=== PATIENT | male | born 1950 | race Caucasian/White ===

== ENCOUNTER 2016-04-03 11:52 | Inpatient (IN) | payer MEDICARE, OTHER ==
[~2016-04-03] VITALS: Ht 188 cm; Wt 130.2 kg
[2016-04-03] VITALS (10 sets, daily range): BP systolic 108–152; BP diastolic 54–76; PULSE 56–71; RESP 13–20; O2SAT 93–98
[~2016-04-03 11:52] MED LIST: ASPI-973 PO; ATOR20TA PO; CAR8A PO; CARV25TA2 PO; EPLE50TA3 PO; ISOS30TA4 PO; LOSA100T29 PO; NITR0.4T SL
[2016-04-03 12:11] LABS: BASOPHILS % (AUTO) 0.4 % (0-3); EOSINOPHILS % (AUTO) 0.9 % (0-5); MONOCYTES % (AUTO) 8.5 % (4-12); Mean Corpuscular Hemoglobin 27.9 pg (27.0-35.0); Mean Corpuscular Volume 85.2 fL (81-100); NEUTROPHILS % (AUTO) 68.4 % (40-74); Platelet Count 168 bil/L (150-400)
[2016-04-03] MEDS ORDERED: Propofol 10,000 mCg/mL 20 mL Inj ONE (12:12)
--- NOTE | 2016-04-03 12:24 | ED.REPORT ---
HPI-Chest Pain 40 and Over Date of Service Apr 03, 2016 ED Provider: Ed Murray MD Patient is a 66-year-old male with a hx of DM who reports to the ED via EMS complaining of an episode of light headedness and leg cramping ten hours ago. Patient was at cardiac rehab last night and after rowing for 20 minutes experienced extreme fatigue. Before bed last night, he felt like his heart rate was elevated. Pt awoke in the middle of the night (0200) up to use the restroom and experienced cramps in his thighs, SOB, light headedness, and nausea for about 10 minutes and then his symptoms resolved. He experienced another episode of similar symptoms six hours later. Patient went to his PCP two hours ago who then sent him to the ED. Patient had a stint placed two months ago by Dr. Santos. Patient had black stool in the middle of the night and has never had a bleed before. Patient is not currently experiencing any symptoms and denies chest pain. Nursing Notes Stated Complaint: CHEST PAIN Chief Complaint: Chest Pain Nursing Notes Reviewed: Yes Allergies: Coded Allergies: gabapentin (Verified Allergy, Unknown, Tachycardia - insomina, 01/29/16) spironolactone (Verified Allergy, Unknown, gynocomastia, 01/29/16) Scheduled Aspirin (Aspirin) 81 Mg Tablet 81 MG PO DAILY Atorvastatin (Lipitor) 20 Mg Tablet 20 MG PO DAILY Carvedilol (Carvedilol) 25 Mg Tablet 25 MG PO BID Clopidogrel Bisulfate (Plavix) 75 Mg Tablet 75 MG PO DAILY Doxazosin (Cardura) 8 Mg Tablet 8 MG PO HS Eplerenone (Eplerenone) 50 Mg Tablet 50 MG PO DAILY Losartan Potassium (Losartan Potassium) 100 Mg Tablet 100 MG PO DAILY Nitroglycerin SL (Nitrostat) 0.4 Mg Tab.subl 0.4 MG SL Q5MIN General Time Seen by MD: 12:09 Chief Complaint Other (light headedness ) Hx Obtained From: Patient Arrived By: Ambulance Sudden in Onset?: Yes Onset Occurred: 5 - 8 hours ago Symptom Duration: Since onset Severity: Current: No pain currently Severity: Maximum: Mild Recent Healthcare: Recent doctor visit Similar Sx Previous: No Past Medical History Past Medical History Reports: Congestive heart failure, Hypertension Past Surgical History stint placed on 01/29/[address] Santos Reports: CABG Smoking History Former Smoker Ambulatory Status Independent Review of Systems Review of Systems Note: leg cramping Constitutional: Reports: Fatigue Respiratory: Reports: Shortness of breath Cardiovascular: Denies: Chest pain GI: Reports: Hematochezia, Nausea Neurologic: Reports: Lightheaded Complete sys rev & neg: except as marked. Physical Exam Initial Vital Signs Vital Signs (First) Date Time Temp Pulse Resp B/P Pulse Ox O2 Delivery O2 Flow Rate FiO2 04/03/16 11:56 37.1 71 13 111/54 98 Room Air Initial VS: Reviewed General/Constitutional: Awake, Alert, No acute distress, Well appearing, Cooperative, Not toxic appearing Respiratory / Chest: Atraumatic, Breath sounds NL, Breath sounds = bilat, No respiratory distress, No rales, No rhonchi, No wheezing Cardiovascular: Heart rate NL, Regular rhythm, Heart sounds NL, No gallop, No murmurs, No rubs Abdomen: Atraumatic, Soft, Non-tender, No guarding, No rebound, BS normoactive Lower Extremity / Pelvis / MS: Atraumatic, Inspection NL, Full range of motion , No swelling, Non-tender, No edema Rectal for Blood: Positive: Blood - occult heme + Interpretation & Diagnostics Lab Results Interpretation Result Diagram: 04/03/16 1203 04/03/16 1203 Test 04/03/16 12:03 04/03/16 13:15 White Blood Count 6.8th/mm3 (3.8-10.1) Red Blood Count 3.51mil/mm3 (4.40-5.80) Hemoglobin 9.8g/dL (13.8-17.2) Hematocrit 29.9% (41.0-50.0) Mean Corpuscular Volume 85.2fL (81-100) Mean Corpuscular Hemoglobin 27.9pg (27.0-35.0) Mean Corpuscular Hemoglobin Concent 32.8% (32.0-37.0) Red Cell Distribution Width 14.5% (12.3-15.4) Platelet Count 168bil/L (150-400) Neutrophils (%) (Auto) 68.4% (40-74) Lymphocytes (%) (Auto) 21.4% (14-46) Monocytes (%) (Auto) 8.5% (4-12) Eosinophils (%) (Auto) 0.9% (0-5) Basophils (%) (Auto) 0.4% (0-3) Sodium Level 137mEq/L (134-144) Potassium Level 4.0mEq/L (3.5-5.2) Chloride Level 101mEq/L (97-108) Carbon Dioxide Level 24mmol/L (18-29) Blood Urea Nitrogen 43mg/dL (8-27) Creatinine 0.89mg/dL (0.76-1.27) Estimat Glomerular Filtration Rate 90mL/min (>59) Glucose Level 123mg/dL (60-99) Calcium Level 9.4mg/dL (8.5-10.1) Magnesium Level 1.9mg/dL (1.6-2.6) Total Bilirubin 0.2mg/dL (0.0-1.2) Aspartate Amino Transf (AST/SGOT) 18U/L (0-50) Alanine Aminotransferase (ALT/SGPT) 25U/L (0-44) Alkaline Phosphatase 61U/L (25-160) Troponin T < 0.010ug/L (0.0-0.011) Total Protein 6.1g/dL (6.4-8.4) Albumin 3.6g/dL (3.4-5.0) ECG Interpretation ECG Interpretation: T wave flattening in V3-V6 new relative to EKG from 01/29/[address] elevation Time: 12:00 Interpreted by: ED physician Normal ECG Interpretation: Normal sinus rhythm (69) Re-Eval/Medical Decision Med Decision/Clinical Course 66-year-old male history of CABG and multiple stents most recent stent placed in January of this year by Dr. Galvan presenting with episode last night of leg cramping and diaphoresis and pallor that lasted 5-10 minutes at 02 100. He was evaluated by the paramedics who reported his EKG was normal and he decided to stay home. He went to his primary doctor today who noted T-wave inversions in lateral leads which were new relative to EKG from 1 week ago. On arrival EKG with T-wave flattening in lateral leads. He also complained of melena and he did have indeed melanotic stools on rectal exam. Hemoglobin is 9.8 down from 13 previous. I consulted GI who took the patient for endoscopy, Protonix was initiated with bolus and drip. Typed and crossed 2 units PRBCs. I discussed the EKG changes with cardiology Dr Hong who was not alarmed and recommended trending troponins. He recommended continuing Plavix but stopping aspirin given the recent stent placement. Patient admitted to GI lab, hospitalist for upper GI bleed, EKG changes.. Time of Eval: 14:00 Patient Status: Condition unchanged Re-Evaluation/Progress Note: Pt rechecked. Informed pt of need for admission. Pt understands and agrees with plan for admission. All questions addressed. Consultation : Referral / Consult Name: Jon Hong MD Consulted With: Cardiology Call Returned at: 13:51 Administrative Staff Supervisor: Agrees with eval, Agrees with plan Note: Case discussed. Dr. Hong agrees with plan. Advised to continue with plavex and stop aspirin. Was not concerned about EKG changes. Counseled Regarding: Diagnosis, Lab results, Need for transfer Discharge & Departure Primary Impression: GI bleed GI bleed type/associated pathology: unspecified gastrointestinal hemorrhage type Qualified Code: K92.2 - Gastrointestinal hemorrhage, unspecified Disposition: Transfer, [place]/[facility] Discharge Condition All VS Reviewed: Yes Condition: Stable Referrals: Jann Sanchez MD (PCP) Scribe Attestation Portion of this note were transcribed by Reji Jones. I, Dr. Murray, personally performed the history, physical exam, and medical decision-making: I reviewed and confirmed the accuracy for the information in the transcribed note. Signed by: az Becerra, 04/03/16 [id number] copies to: Jann Sanchez MD, Ben M MD Apr 03, 2016 12:24 REJI JONES Apr 03, 2016 12:54
[2016-04-03] MEDS ORDERED: 0.9% Sodium Chloride 1,000 ML IV ONE (12:42)
[2016-04-03 12:45] LABS: Magnesium 1.9 mg/dL (1.6-2.6)
[2016-04-03 12:47] LABS: TROPONIN T < 0.010 ug/L (0.0-0.011)
--- NOTE | 2016-04-03 12:51 | DRSVH ---
PROCEDURE: X-RAY CHEST ONE VIEW, PORTABLE ([id number]) INDICATIONS: CHEST PAIN TECHNIQUE: One view of the chest was acquired. COMPARISON: None. FINDINGS: Surgical changes and devices: Post median sternotomy. Lungs and pleura: No pleural effusions or pneumothorax. Lungs are clear. Mediastinum: Mediastinal contours appear normal. Heart size is normal. Bones and chest wall: No suspicious bony lesions. Overlying soft tissues appear unremarkable. IMPRESSION: No acute cardiopulmonary disease. Dictated by: Wes Langford [facility] Interpreted: Rylee Cervantes MD on 04/03/2016 at 12:49 Transcribed by: LETI on 04/03/2016 at 12:49 Approved by: Rylee Cervantes MD, PhD on 04/03/2016 at 17:25
[2016-04-03] MEDS ORDERED: Pantoprazole Inj 80 MG, Pharmacy To Mix 1 EA in 0.9% Sodium Chloride 80 ML IV ONE ×2 (13:20)
[2016-04-03] MEDS ORDERED: Pantoprazole 4 mg/mL 10 mL Inj IVPUSH ONE (13:20)
[2016-04-03] MEDS ORDERED: CLOP75TA3 PO (14:13)
[2016-04-03] MEDS ORDERED: Alum-Mag Hydrox-Simeth 30 mL Suspension PO PRN (14:20)
[2016-04-03] MEDS ORDERED: Ondansetron 2 mg/mL 2 mL Inj IVPUSH PRN (14:20)
--- NOTE | 2016-04-03 14:21 | PCM.CHPMED ---
Subjective Date of Service: Apr 03, 2016 Provider requesting consult: Ed Murray MD Primary Physician: Admitting Physician: Primary Care Physician: Jann Sanchez MD Attending Physician: Chief Complaint: Chief Complaint: Lightheadedness, weakness, fatigue, dyspnea History of Present Illness: Patient is a 66-year-old male with a hx of CAD s/p CABG and coronary stent, and DM who reports to the ED via EMS complaining of lightheadedness, fatigue, shortness of breath on exertion, and nausea. He was exercising at cardiac rehab last night and after rowing for 20 minutes he experienced extreme fatigue. Before bed that night, he felt a rapid heart rate. Pt awoke in the middle of the night (0200) up to use the restroom and experienced SOB, light headedness, and nausea for about 10 minutes and then his symptoms resolved. He experienced another episode of similar symptoms six hours later. Patient had black stool in the middle of the night and has never had a bleed before. Patient went to his PCP who noted his Hb had dropped from 13 to 9.8, and sent him to the ED. Patient is not currently experiencing any symptoms and denies chest pain, shortness of breath, or fatigue while resting. Patient had a stent placed [address] Hammer, currently on Aspirin and Plavix. He states he stopped drinking recently but was previously drinking 2 20 oz beers per day. He denies NSAID or Tylenol use. No family history of colon cancer, Crohn's disease, UC, or celiac disease. In the ED, Hb 9.8, BUN 43, Cr 0.89, LFTs normal. INR pending. CXR was negative. EKG showed new T wave flattening in V3-V6 but troponin was negative. Review of Systems: Comprehensive review of systems conducted and was negative except for the pertinent positives listed above. PMH Past Medical History Congestive heart failure Hypertension CAD Surgical History Stent placed on 01/29/[address] Cabrera CABG Allergies: Coded Allergies: gabapentin (Verified Allergy, Unknown, Tachycardia - insomina, 01/29/16) spironolactone (Verified Allergy, Unknown, gynocomastia, 01/29/16) Social History Hx Alcohol Use: YesHx Substance Use: NoHx Tobacco Use: No Smoking Status: Former Smoker Exam Vital Signs Vital Sign - Last Date Time Temp Pulse Resp B/P Pulse Ox O2 Delivery O2 Flow Rate FiO2 04/03/16 13:24 71 14 108/61 98 Room Air 04/03/16 11:56 37.1 Additional Information: General: Alert, Oriented X3, Cooperative, No Acute Distress Head: Normocephalic, atraumatic. External ears normal. Eyes: Right pupil dilated, deviated outward. Pt reports this is chronic and he has hx of retinal detachment. Mouth: Mouth Normal, Mucous Membranes Moist/[place]ylon Neck: Neck supple with full range of motion. Chest & Lungs: Clear to auscultation bilaterally with no crackles, wheezes, or rhonchi. Cardiovascular: Regular Rate/Rhythm, Normal S1, Normal S2, No Murmurs/Rubs/ Gallops Abdomen: Non-tender, Non-distended, No masses, Normoactive bowel tones, Soft Musculoskeletal: Normal Range of Motion Extremities: No cyanosis/clubbing/edema bilaterally Neurological: Grossly Neurologically Intact, Normal Speech Lab and Diagnostics Result Diagram: 04/03/16 1203 04/03/16 1203 Assessment & Plan Assessment Patient is a 66-year-old male with a hx of CAD s/p CABG and coronary stent, and DM who reports to the ED via EMS complaining of lightheadedness, fatigue, shortness of breath on exertion, and melena. Acute upper GI bleed. - Likely related to his chronic Aspirin and Plavix use. However, given his recent stent, he will likely have to continue these medications. - Will schedule upper endoscopy - Protonix bolus and gtt - Continue to monitor for signs of further bleeding. Acute iron deficiency anemia. - Likely secondary to upper GI bleed. Given his hx of CAD and CHF, consider more stringent transfusion guidelines when monitoring H&H. - Continue to monitor H&H - Transfuse as necessary Shortness of breath on exertion. - May be secondary to acute anemia but his anemia is not particularly severe. Given his cardiac history and new EKG changes, recommend monitoring for any further changes in troponin or EKG changes. I have seen and examined the patient and agree with the resident. Problems: Zack Miller Apr 03, 2016 14:21 Jose D Ulloa MD Apr 04, 2016 17:07
[2016-04-03 14:32] LABS: INR 0.96 ratio
[2016-04-03] MEDS ORDERED: Lactated Ringer's 1,000 ML IV ONE (14:34)
--- NOTE | 2016-04-03 14:34 | PCM.HPANE ---
Patient Data Surgeon Admitting Provider:Oniel Orr MD Attending Provider:Oniel Orr MD Primary Care Physician:Jann Sanchez MD Other Provider: Reason for Visit Gi Bleed CHEST PAIN Ht/WT & BMI Height (Feet): 6 Height (Inches): 2 Weight (Kilograms): 130.45 Body Mass Index 36.00 Allergies Coded Allergies: gabapentin (Verified Allergy, Unknown, Tachycardia - insomina, 01/29/16) spironolactone (Verified Allergy, Unknown, gynocomastia, 01/29/16) Past Anesthesia History Anesthesia History: Denies:: Abnormal Airway, Anesthesia Reactions, Difficult Intubation, Fam Anesthesia Reaction, Fam Malignant Hypertherm, Malignant Hyperthermia Diabetes History Hx Diabetes?: Yes Current Bedside Blood Glucose: 113 MRSA MRSA: No Medications Blood Thinner: Aspirin, Plavix Last Dose Blood Thinner: Apr 03, 2016 Reported Medications Clopidogrel Bisulfate (Plavix)75 Mg [id number] Mg PO DAILY 30 Days Ref 0 04/03/16 Nitroglycerin SL (Nitrostat)0.4 Mg Tab.subl0.4 Mg SL Q5MIN #1 BOTTLE 01/28/16 Losartan Potassium 100 Mg [id number] Mg PO DAILY 01/28/16 Eplerenone 50 Mg [id number] Mg PO DAILY 01/28/16 Carvedilol 25 Mg [id number] Mg PO BID Ref 0 01/28/16 Atorvastatin (Lipitor)20 Mg [id number] Mg PO DAILY Ref 0 01/28/16 Aspirin 81 Mg Pzjqii15 Mg PO DAILY Ref 0 01/28/16 Doxazosin (Cardura)8 Mg Tablet8 Mg PO HS Ref 0 01/28/16 Discontinued Reported Medications Isosorbide MN ER 30 Mg Tab.er.24h30 Mg PO DAILY 01/28/16 History History of ENT Problems?: Yes HEENT History: Positive for:: Cataracts (Right eye catract at - detatched retina) Denies:: Abnormal Airway Difficult Intubation Hearing Problem Hx of Heart Problems?: Yes Cardiovascular History: Positive for:: Cardiac Surgery Chest Pain Congestive Heart Failure Edema Hypertension Denies:: Heart Murmur Irregular Heartbeat Pacemaker Thrombophlebitis Hx of Respiratory Problem?: Yes Respiratory History: Denies:: Tuberculosis Hx Neurologic Problems?: No Neurological History: Denies:: CVA Hx of GI Problems?: Yes Gastrointestinal History: Positive for:: Rectal Bleeding (BLACK IN COLOR) Denies:: Gastrointestinal Bleeding Hx of Problems?: Yes Hx Musculoskeletal Problems?: No Musculoskeletal History: Positive for:: Back Injury (Back - neck - coccyx) Denies:: Joint Replacement Hx of Psycho/Social Problems?: No Hx Surgeries?: Yes (Bowel obstruction) Hx Any Other Health Problems?: Yes Other History: Positive for:: Hospitalization Denies:: Cancer Thyroid Disease History Blood Transfusions: Denies:: Blood Transfuse Reaction Blood Transfusions Hx Diabetes: YesBedside Blood Glucose: 113 Other Pertinent History: CHRONIC SWELLING OF LOWER EXTREMITIES Hx Alcohol Use: YesHx Substance Use: No Smoking Status: Former Smoker Have You Smoked inLast 12 mo: No Stop/Bang Treated for Sleep Apnea?: Yes Do You Have a CPAP Machine?: Yes Risk Assessment Category Category 1A: Patient has history of documented sleep apnea, and HAS NOT received any narcotic, sedative or anesthesia administration during this stay. Category 1B: Patient has history of documented sleep apnea, and HAS received any narcotic , sedative or anesthesia administration during this stay Category 2: Patient has SUSPECTED Obstructive Sleep Apnea, and HAS received any narcotic , sedative or anesthesia administration during this stay. Category 3: Patient has SUSPECTED Obstructive Sleep Apnea and HAS NOT received narcotic, sedative or anesthesia administration during this stay. Category 4: Outpatient in Procedural Areas with known sleep apnea or who screen positive for High Risk via the STOP/BANG questionnaire. Exam Exam Vital Signs Vital Signs Date Time Temp Pulse Resp B/P Pulse Ox O2 Delivery O2 Flow Rate FiO2 04/03/16 14:17 60 14 141/67 98 Room Air 04/03/16 13:24 71 14 108/61 98 Room Air 04/03/16 11:56 37.1 71 13 111/54 98 Room Air General Appearance: Alert, Oriented X3, Cooperative, No Acute Distress HEENT/AIRWAY: MP 2 Lungs: Clear to Auscultation Heart: Exam Unremarkable Meds/Labs/Diagnostics Admission Meds Current Medications Sodium Chloride (Normal Saline) 1,000 ml @ 0 mls/hr Q0M ONCE IV Last administered on 04/03/16 12:42; Start 04/03/16 at 12:42; Stop 04/03/16 at 12:45 ; Status DC Pantoprazole 80 mg 80 mg STAT ONCE IVPUSH Last administered on 04/03/16 13:47 ; Start 04/03/16 at 13:20; Stop 04/03/16 at 13:21; Status DC Pantoprazole/ Miscellaneous/ Sodium Chloride (Protonix Inj/ Pharmacy To Mix/ Normal Saline) 100 ml @ 10 mls/hr ONCE ONCE IV Last administered on t 13:53; Start 04/03/16 at 13:20; Stop 04/03/16 at 23:19 Bedside Blood Glucose: 113 Labs Test 04/03/16 12:03 04/03/16 13:15 White Blood Count 6.8th/mm3 (3.8-10.1) Red Blood Count 3.51mil/mm3 (4.40-5.80) Hemoglobin 9.8g/dL (13.8-17.2) Hematocrit 29.9% (41.0-50.0) Mean Corpuscular Volume 85.2fL (81-100) Mean Corpuscular Hemoglobin 27.9pg (27.0-35.0) Mean Corpuscular Hemoglobin Concent 32.8% (32.0-37.0) Red Cell Distribution Width 14.5% (12.3-15.4) Platelet Count 168bil/L (150-400) Neutrophils (%) (Auto) 68.4% (40-74) Lymphocytes (%) (Auto) 21.4% (14-46) Monocytes (%) (Auto) 8.5% (4-12) Eosinophils (%) (Auto) 0.9% (0-5) Basophils (%) (Auto) 0.4% (0-3) Sodium Level 137mEq/L (134-144) Potassium Level 4.0mEq/L (3.5-5.2) Chloride Level 101mEq/L (97-108) Carbon Dioxide Level 24mmol/L (18-29) Blood Urea Nitrogen 43mg/dL (8-27) Creatinine 0.89mg/dL (0.76-1.27) Estimat Glomerular Filtration Rate 90mL/min (>59) Glucose Level 123mg/dL (60-99) Calcium Level 9.4mg/dL (8.5-10.1) Magnesium Level 1.9mg/dL (1.6-2.6) Total Bilirubin 0.2mg/dL (0.0-1.2) Aspartate Amino Transf (AST/SGOT) 18U/L (0-50) Alanine Aminotransferase (ALT/SGPT) 25U/L (0-44) Alkaline Phosphatase 61U/L (25-160) Troponin T < 0.010ug/L (0.0-0.011) Total Protein 6.1g/dL (6.4-8.4) Albumin 3.6g/dL (3.4-5.0) Hold Urine Received (Received) Plan Impression Patient chart reviewed, patient interviewed and anesthestic plan with risks, benefits, and alternatives discussed, and informed consent obtained. ASA Physical Status: ASA3 Severe Disease Anesthetic Plan: MAC Bene/Risks/Altern/Consents: Yes HP Complete Prior to Induction: Yes Juan M Cheng MD Apr 03, 2016 14:25
--- NOTE | 2016-04-03 15:01 | PCM.ENDEGD ---
EGD Date of Service: Apr 03, 2016 Physician Oniel Orr MD Indication for Procedure GI bleeding Post Procedure Dx & Findings: Multiple erosions and ulcers in the stomach and the duodenum Procedure Esophagogastroduodenoscopy Patient taking aspirin and Plavix. PROCEDURE IN DETAIL: The patient was placed in left lateral decubitus position. Bite block was placed. Scope lubricated, placed in posterior pharynx, passed through the cricopharyngeus and esophagus, slowly advanced the entire length of the gastric pouch, pylorus was identified, scope passed through the pylorus and descending portion of duodenum, withdrawn in the antrum, retroflexed upon itself for view of fundus and cardia. Scope was then withdrawn through the oropharynx. The esophagus was unremarkable until the Z line. At the Z line, there was a irregularity with possible salmon-colored mucosa is less than 2 cm. No masses ulcers and erosions noted. Scope further advanced to the stomach. Retroflexion was done. Stomach was easily inflatable and deflated using air. The antrum and the pylorus showed multiple erosions seen days with surrounding inflammation. The duodenum was normal until the first pass of the duodenum. Along the first and the second pass, I counted 3 ulcers. Largest one was 1-1/2 cm with surrounding inflammation with some cratering. There was a pigmented spot. No bleeding or oozing of blood noted. We injected water right at the site. Then the pigmented spot was noted. No visible vessel. There are 2 ulcers further down. One was about a centimeter the other one was a little less than a centimeter. They both had clean base. Surrounding inflammation noted. Patient also had several 2-3 mm erosions in the same area. Biopsies not obtained due to aspirin and Plavix use. Impression Multiple antral erosions Multiple duodenal erosions At least 3 ulcers. One of the ulcer had pigmented spot. While the patient continues with the aspirin and Plavix, there is risk of one of these ulcers was in blood. Risk benefit for aspirin and Plavix has to be assessed and carefully calculated. I will defer this to cardiology and the primary care service. Recommendation Continue IV Protonix 8 mg per hour drip for the next 48 hours. Clinical diet for 48 hours. Full liquid diet after 48 hours. We will discharge the patient with soft diet for 2 weeks. Ideally would better if they could stop the aspirin and Plavix however please consult cardiology about necessity to continue the aspirin and Plavix. Presedation Assessment Risks and Benefits Informed consent was obtained from the patient after all risks and benefits including but not limited to drug reaction, infection, pain, bleeding, perforation, as well as alternatives were discussed. Patient monitoring Continuous pulse oximetry, cardiac monitoring, blood pressure monitoring, IV access, and oxygen at 2L per nasal cannula. Complications There were no periprocedural complications identified. Post Procedure Plan Post Procedure Recommendations 1. Restrict activities today. 2. Resume normal activities in the morning. 3. Resume medications. 4. GERD behavioral modification: - Avoid fatty, acidic, spicy, large meals - Do not lie down after meals - Do not eat or drink anything for at least 2 1/2 hours before going to bed at night - Discontinue tobacco and alcohol - Decrease or avoid caffeine - Avoid chocolate and mints - Decrease weight - Avoid aspirin and non steroidal anti-inflammatory agents (NSAID) such as Aleve, Advil, Mobic, Naproxen, Ibuprofen, etc 5. Add proton pump inhibitor. Take 30 minutes before 1st meal of the day. 6. Patient informed of normal post procedure side effects as bloating, drowsiness, blood streaking in the stool 7. If gastric biopsy reveal H.pylori, continue with appropriate treatment 8. If small bowel biopsy reveals celiac, continue with appropriate treatment 9. Please don't hesitate to call me with any questions Jose D Ulloa MD Apr 03, 2016 15:01
--- NOTE | 2016-04-03 15:35 | PCM.HPMED ---
Subjective Date of Service Apr 03, 2016 Primary Provider: Admitting Physician: Oniel Orr MD Primary Care Physician: Jann Sanchez MD Attending Physician: Oniel Orr MD Admit Status: From the Emergency Department, Full Admit, Admit to Blue Team Chief Complaint: Lightheadedness, weakness, fatigue, dyspnea History of Present Illness: Nicho is a 66yo male with CAD s/p drug eluting stent placement on 01/29/16 on dual antiplatelet therapy who presented to the emergency department via EMS from his PCP's office with lightheadedness associated with dyspnea and generalized fatigue which began abruptly at 2am today. He awoke at 2am feeling nauseated and ambulated to the bathroom. He then had loose, black stooling followed by 10 minutes of lightheadedness without syncope. He reports that he is usually a vigorous eater, but has been indifferent to food today. He denies any current nausea. He was feeling like his usual self yesterday until mid way through cardiac rehab exercises when he began to feel very fatigued, no lightheadedness or dyspnea at that time. He states that he went to bed early because he was "just so tired" and had some palpitations when getting ready for bed. He went to see his PCP today who noted his Hgb had declined from 13 to 9.8 , and sent him to the ED. Nicho denies any current symptoms of lightheadedness , dyspnea, palpitations, or chest pain. He admits to ongoing fatigue. Nicho used to drink 1-2 beers per day, but has not had any alcohol since January 2016. He denies any NSAID use. In the ER, his BUN was found to be elevated at 43 and hgb at 9.8. A pantoprazole drip was started and gastroenterology consulted for a prompt EGD. The patient's history was obtained while in the preprocedure area for endoscopy. Review of Systems: A comprehensive review of systems was conducted with the patient and found to be negative except as above in the History of Present Illness. Allergies Coded Allergies: gabapentin (Verified Allergy, Unknown, Tachycardia - insomina, 01/29/16) spironolactone (Verified Allergy, Unknown, gynocomastia, 01/29/16) Home Medications Aspirin 81mg daily Amlodipine 10mg daily Atorvastatin 20mg qHS Carvedilol 25mg qAM and 12.5 qHS Clopidogrel 75mg daily Doxazosin 8mg qHS Eplerenone 50mg daily Losartan 100mg daily Nitroglycerin 0.4mg sublingual tablet PRN chest pain Vitamin D3 400IU TID PMH Coronary Artery Disease s/p drug eluting stent to the distal circumflex on 01/28. 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 No family hx of bleeding disorders. Both parents of cardiovascular disease: His father had an [place] in this 50s, mother had CAD and valvular heart disease Social History Hx Alcohol Use: Yes (Quit in January 2016, previously drank 1-2 beers per day (sometimes each being 20oz)) Hx Substance Use: No Hx Tobacco Use: Yes Smoking Status: Former Smoker (smoked 1 pack per day for 5 years, quit >30 years ago.) Years of Smokin Additional Information Local resident who lives with his Exam Vital Signs Vital Sign - Last Date Time Temp Pulse Resp B/P Pulse Ox O2 Delivery O2 Flow Rate FiO2 04/03/16 14:17 60 14 141/67 98 Room Air 04/03/16 11:56 37.1 Exam General: Resting comfortably on the gurney. + pallor with pale mucus membranes. No acute distress. HEENT: Normocephalic, atraumatic. External ears without defect. Right pupil is dilated, left constricts appropriately. EOMI. Anicteric sclerae. Pale conjunctiva. Neck: Supple with full range of motion. No jugular venous distension. Cardiovascular: Regular rate and rhythm without murmur, rub, or gallop appreciated Pulmonary: Clear to auscultation bilaterally without crackles, wheezes, or rhonchi. Normal respiratory effort with no use of accessory muscles. Abdomen: Normoactive bowel tones. Soft, nontender, nondistended. No hepatosplenomegaly appreciated. Extremities: No clubbing, cyanosis. Trace bilateral pitting edema distal to the knees. Skin: Normal temperature, turgor, and texture; no rash appreciated. Neurological: Cranial nerves grossly intact. Normal muscle strength, tone, and bulk. No known gait impairment. Psychiatric: Normal mood and affect. Alert and oriented to person, place, and time. Lab and Diagnostics Result Diagram: 04/03/16 1203 04/03/16 1203 X-Rays, CTs and MRIs Chest xray: FINDINGS: Surgical changes and devices: Post median sternotomy. Lungs and pleura: No pleural effusions or pneumothorax. Lungs are clear. Mediastinum: Mediastinal contours appear normal. Heart size is normal. Bones and chest wall: No suspicious bony lesions. Overlying soft tissues appear unremarkable. IMPRESSION: No acute cardiopulmonary disease. Dictated by: Wes ROCK Interpreted: Rylee Cervantes MD on 04/03/2016 at 12:49 Assessment & Plan Nicho is a 66yo male on dual antiplatelet therapy for CAD who presented with a symptomatic acute upper gastrointestinal hemorrhage, he has been admitted for further evaluation and treatment. 1. Upper GI Bleed, Acute - Continue IV PPI drip per GI - Prompt EGD with gastroenterology - Trend H&H q6h - Transfuse for hemoglobin < 9 2. Acute Blood Loss Anemia - Secondary to #1 - Transfuse if Hgb less than 9.0 given hx of severe CAD - Check H/H q 6 hours x4 - Telemetry monitoring 3. Coronary artery disease, chronic - Cardiology (Dr Hong) has recommended continuation of clopidogrel due to his severe, diffuse CAD and holding his aspiring due to the active GI hemorrhage. - Plan to continue his home carvedilol - Telemetry 4. Hyperlipidemia, chronic -Continue home statin dosing 5. Hypertension, chronic - Continue losartan at home dosing - Monitoring 6. Hyperaldosteronism, chronic and presumed stable - Continue eplerenone - Monitor CMP for potential electrolyte abnormalities 7. Diabetes mellitus, type 2 with home dietary control - Once eating , will have constant carbohydrate diet - Low dose correctional lispro insulin - Blood glucose monitoring Nicho is admitted under inpatient status with expected length of stay greater than 2 midnights due to severity of presenting symptoms, risk of adverse event, and complexity of treatment plan. Resuscitation Status: CPR: Attempt Resuscitation (Discussed at bedside with the patient) VTE Prophylaxis Contraindicate VTE Med Contraindication: Bleeding Attending Statement The patient was seen and examined together with Dr. Hancock on 04/03/2016 and I have added additional information to the note above. Rasheeda Hancock DO Apr 03, 2016 14:47 Oniel Orr MD Apr 03, 2016 16:20
[2016-04-03] MEDS ORDERED: Glucose 40% Oral Gel 15 Gm Tube PO PRN (15:40)
--- NOTE | 2016-04-03 15:52 | PCM.ANEP2 ---
Post Anesthesia Evaluation ASA/CMS Post Anesthesia VS in Patient's Normal Range?: Yes Resp Stable; Airway Patent?: Yes CV Function & Hydration Stable: Yes Mental Status Recovered?: Yes Pain control Satisfactory?: Yes N/V Control Satisfactory?: Yes Juan M Cheng MD Apr 03, 2016 15:52
[2016-04-03] MEDS: Pantoprazole Inj 80 MG in 0.9% Sodium Chloride 80 ML IV SCH (16:25)
--- NOTE | 2016-04-03 16:59 | NUR ---
ADMIT Pt brought onto floor around 1600 via gurney from [facility]. Report received from MEGAN Coker in Recovery. VSS, no s/sx of distress, reports no pain, n, v. Steady on feet, SBA to bathroom. Welcome video viewed, belongings recorded placed in closet. Med rec reviewed - MD notified, medications taken down to pharmacy. Assessments completed.
[2016-04-03] MEDS: Insulin LISPRO 300 Unit/3 mL Inj SUBQ SCH ×2 (17:30→22:00)
--- NOTE | 2016-04-03 17:49 | PCM.HPCARD ---
Subjective Date of service Apr 03, 2016 Primary Provider: Admitting Physician: Oniel Orr MD Primary Care Physician: Jann Sanchez MD Attending Physician: Oniel Orr MD Admit Status: Full Admit Chief Complaint: Chief Complaint: Chest pain History of Present Illness: I did not have a chance to see this patient but I have reviewed his records and I have been asked to write some recommendations in this gentleman who unfortunately presents with acute UGI bleed and recently had a TALISHA to a relatively large size OM on January [address] Hammer. He was still in GI lab. PMH Past Medical History Congestive heart failure Hypertension CAD Recent TALISHA to OM branch on 01/29/2016. Bedside Blood Glucose: 98 Surgical History Stent placed on 01/29/[address] Cabrera CABG Allergies: Coded Allergies: gabapentin (Verified Allergy, Unknown, Tachycardia - insomina, 01/29/16) spironolactone (Verified Allergy, Unknown, gynocomastia, 01/29/16) Social History Hx Alcohol Use: Yes (Quit in January 2016, previously drank 1-2 beers per day (sometimes each being 20oz))Hx Substance Use: NoHx Tobacco Use: Yes Smoking Status: Former Smoker (smoked 1 pack per day for 5 years, quit >30 years ago.) Years of Smokin Exam Vital Signs Vital Sign - Last Date Time Temp Pulse Resp B/P Pulse Ox O2 Delivery O2 Flow Rate FiO2 04/03/16 16:00 58 04/03/16 15:51 36.4 19 152/76 94 Room Air Lab and Diagnostics Result Diagram: 04/03/16 1628 04/03/16 1203 Assessment & Plan Problems: (1) Upper gastrointestinal hemorrhage Plan: I have reviewed the patient's coronary images and his recent upper endoscopy. Given the recent TALISHA to a relatively large size OM branch, I would recommend to continue with Plavix 75 mg once a day and stop aspirin for now. Continue to monitor his H/H and treat him with H2/PPI as directed by GI. Transfuse as needed to maintain Hgb > 8.5. If hypotensive then hold BP meds as well. Hopefully with stopping his ASA and treating him with H2 blockers/PPI, he will stop bleeding in the next 2-3 days. Ideally, he should stay on Plavix for 6 months from date of PCI, but one may consider stopping it after just 3 months in certain cases. My associate, Dr. Covington, will further assist you if needed. Status: Acute ICD Code: K92.2 (2) CAD (coronary artery disease) Qualifiers: Coronary Disease-Associated Artery/Lesion type: [place] artery [place] vs. transplanted heart: [place] heart Associated angina: without angina Qualified Code: I25.10 - Atherosclerotic heart disease of [place] coronary artery without angina pectoris Status: Chronic ICD Code: I25.10 (3) S/P drug eluting coronary stent placement Status: Acute ICD Code: Z95.5 (4) Hx of CABG Status: Acute ICD Code: Z95.1 (5) GI bleed Qualifiers: GI bleed type/associated pathology: unspecified gastrointestinal hemorrhage type Qualified Code: K92.2 - Gastrointestinal hemorrhage, unspecified Status: Acute ICD Code: K92.2 VTE Mechanical Devices: Intermittant Pneumatic CD Resuscitation Status: CPR: Attempt Resuscitation (Discussed at bedside with the patient) VTE Prophylaxis Contraindicate VTE Med Contraindication: Bleeding Time spent 30 minutes Copies to: Jyothi Cabrera MD, Oscar J MD Apr 03, 2016 17:49
[2016-04-04] VITALS (11 sets, daily range): BP systolic 92–119; BP diastolic 54–74; PULSE 55–80; RESP 16–20; O2SAT 94–98
--- NOTE | 2016-04-04 00:07 | NUR ---
Coccygeal Pain Pt complained of chronic coccygeal pain. Upon assessment of coccyx, skin clean, dry and intact with no visible abrasions/wounds. Provided patient with 2 pillows for additional cushioning and positioning assistance. Patient stated pillows did provide some relief and support while positioned on left side. Bed low and locked, call light within reach.
--- NOTE | 2016-04-04 01:20 | NUR ---
low hgb 23:[address] Sharma was notified per Dr. Hong's recommendation. Dr. Sharma ordered to monitor for bleeding and wait for repeat H/H results at 04:30. will closely monitor pt.
[2016-04-04] MEDS: Pantoprazole Inj 80 MG in 0.9% Sodium Chloride 80 ML IV SCH ×4 (02:49→12:54)
[2016-04-04] MEDS ORDERED: Furosemide 10 mg/mL 2 mL Inj IV ONE ×2 (06:35→13:20)
[2016-04-04] MEDS ORDERED: 0.9% Sodium Chloride 500 ML ONE (07:20)
[2016-04-04] MEDS: Insulin LISPRO 300 Unit/3 mL Inj SUBQ SCH ×4 (08:00→19:23)
--- NOTE | 2016-04-04 08:01 | PCM.PNMED ---
Subjective Date of Service Apr 04, 2016 Subjective Nicho denies any dizziness. He states that he is feeling okay. Denies any nausea, but he remains without interest in food. His blood pressure has been lower than usual this morning. Exam Vital Signs Vital Sign - Last Date Time Temp Pulse Resp B/P Pulse Ox O2 Delivery O2 Flow Rate FiO2 04/04/16 07:44 36.9 64 20 118/74 04/04/16 05:30 94 Room Air Intake and Output 04/03/16 04/03/16 04/04/16 Cumulative From/Thru 15:00 23:00 07:00 04/03/16 11:56 - 04/04/16 06:35 Intake Total 200 ml 314 ml 200 ml 714 ml Output Total 375 ml 500 ml 875 ml Balance 200 ml -61 ml -300 ml -161 ml Intake Oral 314 ml 200 ml 514 ml IV Total 200 ml 200 ml Output Urine Total 375 ml 500 ml 875 ml # Voids 1 1 Exam General: Sleeping in bed upon my entering the room. Comfortable appearing, awoken easily. + pallor with pale pink mucus membranes. No acute distress. HEENT: Normocephalic, atraumatic. External ears without defect. Right pupil is dilated, left constricts appropriately. EOMI. Anicteric sclerae. Pale conjunctiva. Neck: Supple with full range of motion. No jugular venous distension. Cardiovascular: Regular rate and rhythm without murmur, rub, or gallop appreciated Pulmonary: Clear to auscultation bilaterally without crackles, wheezes, or rhonchi. Normal respiratory effort with no use of accessory muscles. Abdomen: Normoactive bowel tones. Soft, nontender, nondistended. No hepatosplenomegaly appreciated. Extremities: No clubbing, cyanosis. Trace bilateral pitting edema distal to the knees. Skin: Normal temperature, turgor, and texture; no rash appreciated. Neurological: Cranial nerves grossly intact. Normal muscle strength, tone, and bulk. Normal speech. No known gait impairment. Psychiatric: Normal mood and affect. Alert and oriented to person, place, and time. IVs and Medications Medications Reviewed: Medications were reviewed in detail Lab and Diagnostics Result Diagram: 04/04/16 0545 04/03/16 1203 X-Rays, CTs and MRIs Chest xray: FINDINGS: Surgical changes and devices: Post median sternotomy. Lungs and pleura: No pleural effusions or pneumothorax. Lungs are clear. Mediastinum: Mediastinal contours appear normal. Heart size is normal. Bones and chest wall: No suspicious bony lesions. Overlying soft tissues appear unremarkable. IMPRESSION: No acute cardiopulmonary disease. Dictated by: Wes Langford RRConstantin Interpreted: Rylee Cervantes MD on 04/03/2016 at 12:49 Assessment & Plan Nicho is a 66yo male on dual antiplatelet therapy for severe, diffuse CAD who presented with a symptomatic acute upper gastrointestinal hemorrhage, he has been admitted for further evaluation and treatment. EGD done immediately following admission visualized 3 duodenal ulcerations. 1. Upper gastrointestinal bleeding due to duodenal ulcerations, acute, present on admission - Holding aspirin - Continue IV PPI drip for the first 48hours of this hospitalization, will transition to oral pantoprazole after that point in time. - Clear liquid diet - 2 units of PRBCs transfusing this morning - Continue to trend H&H q6h - Transfuse for hemoglobin < 8.5 per cardiology 2. Acute Blood Loss Anemia - Secondary to #1 - Transfuse if Hgb < 8.5 given his hx of severe CAD - Telemetry monitoring - Continue checking HH q 6 hours x4 3. Coronary artery disease, chronic - Cardiology (Dr Hong) has recommended continuation of clopidogrel due to his CAD and holding his aspirin due to the active GI hemorrhage. - Holding home carvedilol dosing due to his lower blood pressure, will resume once more stable - Telemetry 4. Hyperlipidemia, chronic -Continue home statin dosing 5. Hypertension, chronic, currently hypotensive - Holding losartan, will resume when his blood pressure improves - Monitoring 6. Hyperaldosteronism, chronic and presumed stable - Continue eplerenone - Monitor CMP for potential electrolyte abnormalities 7. Diabetes mellitus, type 2 with home dietary control - Once eating solid food, will have constant carbohydrate diet - Low dose correctional lispro insulin - Blood glucose monitoring Disposition: Anticipate that he will be here an additional 2-3 days, will discharge when medically stable. VTE Mechanical Devices: Intermittant Pneumatic CD Resuscitation Status: CPR: Attempt Resuscitation (Discussed at bedside with the patient at the time of admission) Attending Statement The patient was seen and examined together with Dr. Hancock on 04/04/2016 and I agree with the history, exam and plan as outlined in the note above. Rasheeda Hancock DO Apr 04, 2016 08:01 Oniel Orr MD Apr 05, 2016 13:05
[2016-04-04] MEDS: EPLERENONE 50 MG PO SCH (08:30)
--- NOTE | 2016-04-04 11:42 | NUR ---
Social Work: Initial Assessment Data: Pt is a 66 y/o male admitted for GI bleed. Pt's PCP is Dr Sanchez, pt's insurance is Medicare with [employer] supp. Readmit score not listed. DECORATING MACHINE TENDER met with pt at bedside, role explained. Pt states that he lives in [place] with his spouse in a single story home where he uses no DME. Pt states that he drives, does not have a DPOA and declined information, has no history with HH or SNF, no LTC or VA benefits, and is not a caregiver. Pt states he may need a taxi at d/c home if his spouse is not available. Pt has been up and independent in the room. DECORATING MACHINE TENDER information and plan written on board. No d/c planning needs identified at this time. DECORATING MACHINE TENDER will continue to follow if needs arise. Assessment: Pt who is independent at baseline. Plan: Pt will d/c home via POV when medically stable. No d/c planning needs identified at this time. DECORATING MACHINE TENDER will continue to follow if needs arise. EMANUEL Gagnon Addendum: 04/04/16 at 1145 by ANGEL VALENCIA Amended: Links added.
--- NOTE | 2016-04-04 14:01 | PROG NOTE ---
[address] [address] PROGRESS NOTE PATIENT: BRE RED : 1950 MR#: [id number] ADMIT: 04/03/2016 JOB ID: [id number] DATE: 04/04/2016 SUBJECTIVE: The patient is sitting on his bed. He is getting second blood transfusion. No active chest pain or worsening shortness of breath or PND, orthopnea or syncope or new cardiovascular symptoms. In summary, this 66-year-old pleasant male who has a history of two-vessel bypass surgery with BUCKLEY graft to LAD, free LENIN to diagonal branch, underlying essential hypertension hyperlipidemia, diabetes mellitus, obstructive sleep apnea, obesity, nephrolithiasis who had drug-coated stent to the distal circumflex by Dr. Cabrera on January 29, 2016 with LV ejection fraction about 55% with patent both the grafts got admitted because of episode of dyspnea, fatigue, weakness, lightheadedness. The patient was seen by PCP. The patient was found to have significant drop in his hemoglobin from 13 to 9.8. The patient was transferred to our facility. He underwent upper GI endoscopy, which revealed multiple antral erosions, multiple duodenal erosions, at least three ulcers. The patient was evaluated by Dr. Hong from Cardiology yesterday who went through his medical history. Aspirin was discontinued. In view of recent drug-coated stent placement, it was decided to continue Plavix in the setting of initial IV PPI and later on oral PPI. OBJECTIVE: Blood pressure 116/70, heart rate 55, respiratory rate 20, oxygen saturation 98%. Neck: No apparent JVD. Chest: No obvious crepitation or rhonchi. CVS: S1, S2 normal. No S3, no S4. Abdomen: Obese. I do not appreciate any pulsatile mass or hepatosplenomegaly. Extremities: Mild pedal edema. PRINT BINDING AND FINISHING WORKER: Alert, oriented to time, place and person. No obvious motor or sensory deficit. Extremities: No evidence of critical limb ischemia. Telemetry revealed sinus rhythm with occasional PVCs and in the night time there was one pause of 2.29 seconds. LABORATORIES: Hemoglobin 7.8, INR 0.96. Sodium 137, potassium 4.0. BUN 43, creatinine 0.89. Magnesium 1.9 with normal AST, ALT. Triglyceride 105, total cholesterol 105, LDL 59, HDL 25. ASSESSMENT AND PLAN: Upper GI bleed due to duodenal ulcerations led to acute blood loss anemia requiring blood transfusion, history of coronary artery disease status post drug-coated stent placement to the distal circumflex artery by Dr. Cabrera on January 29, 2016 with LV ejection fraction about 55% with underlying essential hypertension, hyperlipidemia, obstructive sleep apnea, and other problems as stated above. It is a complicated situation. As I have mentioned that at present, his aspirin is on hold. In view of recent drug-coated stent, will at least recommend Plavix 75 mg daily under the cover of PPI. There is no clear-cut senses between the interaction of Plavix and PPI. In this situation, he will need PPI. Keep the hemoglobin more than 10. In the hospital his troponin was normal. Once his blood pressure remains stable, consider reintroduction of tolerable dose of beta pablo and VASQUEZ inhibitor. Continue statin therapy. Hemodynamically at present he is stable. He is not having active chest pain. Clinically, he is not in heart failure. I discussed the plan with the patient who agrees and concurs. At this point of time, Cardiology will sign off. The patient to followup with his vet tech, Dr. Parrish, as an outpatient. Total time spent today is about 40 minutes.
[2016-04-04 15:57] LABS: APPEARANCE,URINE CLEAR (CLEAR,HAZY); COLOR,URINE YELLOW (YELLOW); OCCULT BLOOD,URINE LARGE (NEGATIVE); PH,URINE 5.5 (5.0-8.0); UROBILINOGEN,URINE NORMAL (NORMAL)
--- NOTE | 2016-04-04 16:09 | NUR ---
spiritual care: pt request--spiritual practice conversational visit. pt shared personal history and coping. Calm, pleasant; asked about reading material. Provided 2 novels from book rack. Pt may appreciate some designated time for personal meditation practise. I encouraged him to speak to nurse to arrange some interruption-free time. Pt requesting meat selector, no meat selector found.
--- NOTE | 2016-04-04 17:37 | PCM.PNMED ---
Subjective Date of Service Apr 04, 2016 Subjective Patient reports that he feels better today, with improved energy, but still has intermittent mild lightheadedness. However, he reports that he had a small bowel movement with black stool today. Exam Vital Signs Vital Sign - Last Date Time Temp Pulse Resp B/P Pulse Ox O2 Delivery O2 Flow Rate FiO2 04/04/16 16:47 36.3 63 20 108/71 98 Room Air Intake and Output 04/03/16 04/03/16 04/04/16 Cumulative From/Thru 15:00 23:00 07:00 04/03/16 11:56 - 04/04/16 06:35 Intake Total 200 ml 314 ml 200 ml 714 ml Output Total 375 ml 500 ml 875 ml Balance 200 ml -61 ml -300 ml -161 ml Intake Oral 314 ml 200 ml 514 ml IV Total 200 ml 200 ml Output Urine Total 375 ml 500 ml 875 ml # Voids 1 1 Exam General: Alert, Oriented X3, Cooperative, No Acute Distress Head: Normocephalic, atraumatic. External ears normal. Eyes: Right pupil dilated, deviated outward. Pt reports this is chronic and he has hx of retinal detachment. Mouth: Mouth Normal, Mucous Membranes Moist/Reservoir Neck: Neck supple with full range of motion. Chest & Lungs: Clear to auscultation bilaterally with no crackles, wheezes, or rhonchi. Cardiovascular: Regular Rate/Rhythm, Normal S1, Normal S2, No Murmurs/Rubs/ Gallops Abdomen: Non-tender, Non-distended, No masses, Normoactive bowel tones, Soft Musculoskeletal: Normal Range of Motion Extremities: Bilateral lower extremity edema Neurological: Grossly Neurologically Intact, Normal Speech Lab and Diagnostics Result Diagram: 04/04/16 1540 04/04/16 1540 X-Rays, CTs and MRIs Chest xray: FINDINGS: Surgical changes and devices: Post median sternotomy. Lungs and pleura: No pleural effusions or pneumothorax. Lungs are clear. Mediastinum: Mediastinal contours appear normal. Heart size is normal. Bones and chest wall: No suspicious bony lesions. Overlying soft tissues appear unremarkable. IMPRESSION: No acute cardiopulmonary disease. Dictated by: Wes ROCK Interpreted: Rylee Cervantes MD on 04/03/2016 at 12:49 Assessment & Plan Patient is a 66-year-old male with a hx of CAD s/p CABG and coronary stent, and DM who reports to the ED via EMS complaining of lightheadedness, fatigue, shortness of breath on exertion, and melena. Acute upper GI bleed. - Likely related to his chronic Aspirin and Plavix use. Per cardiology, he is now off Aspirin but must continue Plavix. EGD yesterday showed multiple antral erosions, at least 3 duodenal ulcers, one of them with a pigmented spot. He at risk for continued bleeding given his Plavix use, but this will be deferred to Cardiology and hospitalist team. We will reassess the patient on Thursday, but please call us if there is further significant bleeding over the weekend. - Protonix bolus and gtt for 48 hours total - Continue to monitor for signs of further bleeding. - Clear liquid diet for 48 hours, then full liquid diet for 48 hours. - Will eventually discharge patient with soft diet for 2 weeks. Acute iron deficiency anemia. - Likely secondary to upper GI bleed. His H&H continues to drop,and he may continue to bleed for some time with asa and plavix. - Continue to monitor H&H - Transfuse as necessary VTE Mechanical Devices: Intermittant Pneumatic CD Resuscitation Status: CPR: Attempt Resuscitation (Discussed at bedside with the patient at the time of admission) Zack Miller Apr 04, 2016 17:37 Jose D Ulloa MD Apr 05, 2016 10:38
[2016-04-05] VITALS (7 sets, daily range): BP systolic 125–136; BP diastolic 70–79; PULSE 58–68; RESP 16–18; O2SAT 95–100
[2016-04-05] MEDS: Pantoprazole Inj 80 MG in 0.9% Sodium Chloride 80 ML IV SCH ×5 (01:57→16:05)
[2016-04-05 06:47] LABS: BASOPHILS % (AUTO) 0.2 % (0-3); EOSINOPHILS % (AUTO) 3.5 % (0-5); MONOCYTES % (AUTO) 15.2 % (4-12); Mean Corpuscular Hemoglobin 28.1 pg (27.0-35.0); Mean Corpuscular Volume 86.9 fL (81-100); NEUTROPHILS % (AUTO) 55.1 % (40-74); Platelet Count 124 bil/L (150-400)
[2016-04-05] MEDS: Insulin LISPRO 300 Unit/3 mL Inj SUBQ SCH ×4 (07:47→20:48)
[2016-04-05] MEDS: EPLERENONE 50 MG PO SCH (07:49)
[2016-04-05] MEDS ORDERED: Potassium Chloride Inj 20 MEQ in Dextrose 5% 250 ML IV ONE (07:50)
--- NOTE | 2016-04-05 11:53 | NUR ---
CATE signed. EMANUEL Stubbs
--- NOTE | 2016-04-05 12:00 | PCM.PNMED ---
Subjective Date of Service Apr 05, 2016 Subjective Nicho states that he is feeling better today with less fatigue and no lightheadedness though he is not fully back to his usual energy level. He had a small amount of black stool overnight, no stooling this morning. Exam Vital Signs Vital Sign - Last Date Time Temp Pulse Resp B/P Pulse Ox O2 Delivery O2 Flow Rate FiO2 04/05/16 09:10 68 04/05/16 07:54 36.7 16 130/70 95 Room Air Intake and Output 04/04/16 04/04/16 04/05/16 Cumulative From/Thru 15:00 23:00 07:00 04/03/16 11:56 - 04/05/16 06:35 Intake Total 603 ml 1287 ml 200 ml 2804 ml Output Total 1775 ml 750 ml 3400 ml Balance 603 ml -488 ml -550 ml -596 ml Intake Oral 1030 ml 200 ml 1744 ml IV Total 257 ml 457 ml Packed Cells 603 ml 603 ml Output Urine Total 1775 ml 750 ml 3400 ml # Voids 1 # Bowel Movements 1 1 Exam General: Sleeping in bed upon my entering the room. Comfortable appearing, awoken easily. No pallor. No acute distress. HEENT: Right pupil is dilated, left constricts appropriately. Anicteric sclerae. Moist, pink mucus membranes. Neck: Supple with full range of motion. No jugular venous distension. Cardiovascular: Regular rate and rhythm without murmur, rub, or gallop appreciated Pulmonary: Clear to auscultation bilaterally without crackles, wheezes, or rhonchi. Normal respiratory effort with no use of accessory muscles. Abdomen: Normoactive bowel tones. Soft, nontender, nondistended. No hepatosplenomegaly appreciated. Extremities: No clubbing, cyanosis. Trace bilateral pitting edema distal to the knees. Skin: Normal temperature, turgor, and texture; no rash appreciated. Neurological: Cranial nerves grossly intact. Normal muscle strength, tone, and bulk. Normal speech. No known gait impairment. Alert and oriented to person, place, and time. Psychiatric: Normal mood and affect. IVs and Medications Medications Reviewed: Medications were reviewed in detail Lab and Diagnostics Result Diagram: 04/05/16 0610 04/05/16 0610 X-Rays, CTs and MRIs Chest xray: FINDINGS: Surgical changes and devices: Post median sternotomy. Lungs and pleura: No pleural effusions or pneumothorax. Lungs are clear. Mediastinum: Mediastinal contours appear normal. Heart size is normal. Bones and chest wall: No suspicious bony lesions. Overlying soft tissues appear unremarkable. IMPRESSION: No acute cardiopulmonary disease. Dictated by: Wes ROCK Interpreted: Rylee Cervantes MD on 04/03/2016 at 12:49 Assessment & Plan Nicho is a 66yo male with severe, diffuse CAD who was on dual antiplatelet therapy, he presented with dyspnea and melena. He was admitted with a symptomatic upper GI bleed. EGD done immediately following admission visualized 3 duodenal ulcerations. 1. Upper gastrointestinal bleeding due to duodenal ulcerations, acute, present on admission - Holding aspirin - Continue IV PPI drip until this evening, transition to oral pantoprazole tomorrow morning - Clear liquid diet until dinner time today, then will transition to a soft diet - 2 units of PRBCs transfused yesterday - Continue to trend H&H q12h - Transfuse for hemoglobin < 9 per cardiology 2. Acute Blood Loss Anemia, present on admission, improved and stable - Secondary to #1 - Transfuse if Hgb < 9 given his hx of severe CAD - Continue telemetry monitoring 3. Coronary artery disease, chronic - Cardiology has recommended continuation of clopidogrel due to his CAD and holding his aspirin due to the active GI hemorrhage. - Holding home carvedilol dosing due to his lower blood pressures yesterday - Telemetry 4. Hyperlipidemia, chronic - Continue home statin dosing 5. Hypertension, chronic, currently hypotensive - Holding losartan, will resume when his blood pressure improves - Monitoring 6. Hyperaldosteronism, chronic and presumed stable - Continue eplerenone - Monitor CMP for potential electrolyte abnormalities 7. Diabetes mellitus, type 2 with home dietary control - Soft, constant carbohydrate diet - Low dose correctional lispro insulin - Blood glucose monitoring Disposition: Anticipate that he will be here an additional 2 days, will discharge when medically stable. VTE Mechanical Devices: Venous Foot Pump Resuscitation Status: CPR: Attempt Resuscitation (Discussed at bedside with the patient at the time of admission) Attending Statement The patient was seen and examined together with Dr. Hancock on 04/05/2016 and I agree with the history, exam and plan as outlined in the note above. I anticipate pt will be able to safely discharge to home on Thursday (04/07/2016) morning. Rasheeda Hancock DO Apr 05, 2016 12:00 Oniel Orr MD Apr 05, 2016 13:09
--- NOTE | 2016-04-05 12:00 | NUR ---
Social Work-readiness for discharge: Data:EMR reviewed. Pt is on day 2 of hospitalization for GI bleed per H&P. Per MD, pt may need to be in the hospital for another 1-2 days. SW followed up with pt who confirmed plan of home with spouse no needs. Per RN notes, pt has been up independent in his room. Pt's spouse will provide transport or pt will pay for a taxi at discharge. No other discharge needs identified. SW will continue to follow if needs arise. Assessment:Pt who is independent at baseline. Plan:Pt to discharge home when medically stable via POV or private pay taxi. No other discharge needs identified. SW will continue to follow if needs arise. EMANUEL Stubbs
--- NOTE | 2016-04-05 12:12 | PCM.PNMED ---
Subjective Date of Service Apr 05, 2016 Subjective Patient is doing well no abdominal pain tolerating diet. Patient has small amount of black stool yesterday but none today. Exam Vital Signs Vital Sign - Last Date Time Temp Pulse Resp B/P Pulse Ox O2 Delivery O2 Flow Rate FiO2 04/05/16 09:10 68 04/05/16 07:54 36.7 16 130/70 95 Room Air Intake and Output 04/04/16 04/04/16 04/05/16 Cumulative From/Thru 15:00 23:00 07:00 04/03/16 11:56 - 04/05/16 06:35 Intake Total 603 ml 1287 ml 200 ml 2804 ml Output Total 1775 ml 750 ml 3400 ml Balance 603 ml -488 ml -550 ml -596 ml Intake Oral 1030 ml 200 ml 1744 ml IV Total 257 ml 457 ml Packed Cells 603 ml 603 ml Output Urine Total 1775 ml 750 ml 3400 ml # Voids 1 # Bowel Movements 1 1 Exam Patient is alert oriented comfortable Lungs clear Cardiovascular regular rate and rhythm normal S1-S2 Abdomen soft nontender nondistended with no marked bowel sounds Skin shows no jaundice. Lab and Diagnostics Result Diagram: 04/05/16 0610 04/05/16 0610 X-Rays, CTs and MRIs Chest xray: FINDINGS: Surgical changes and devices: Post median sternotomy. Lungs and pleura: No pleural effusions or pneumothorax. Lungs are clear. Mediastinum: Mediastinal contours appear normal. Heart size is normal. Bones and chest wall: No suspicious bony lesions. Overlying soft tissues appear unremarkable. IMPRESSION: No acute cardiopulmonary disease. Dictated by: Wes Langford Constantin Interpreted: Rylee Cervantes MD on 04/03/2016 at 12:49 Assessment & Plan Nicho is a 66yo male with severe, diffuse CAD who was on dual antiplatelet therapy, he presented with dyspnea and melena. He was admitted with a symptomatic upper GI bleed. EGD done immediately following admission visualized 3 duodenal ulcerations. His hemoglobin stable at 9.22. Minimal stool output tolerating diet. I will continue to keep protonic strip until tomorrow morning and transition into pantoprazole 40 mg by mouth twice a day. Then transition into soft diet by tomorrow. Continue to trend H&H q12h. Transfuse for hemoglobin < 9 per cardiology. Will sign off. Please reconsult evidence of decreasing hemoglobin or melena. VTE Mechanical Devices: Venous Foot Pump Resuscitation Status: CPR: Attempt Resuscitation (Discussed at bedside with the patient at the time of admission) Jose D Ulloa MD Apr 05, 2016 12:12
--- NOTE | 2016-04-05 14:59 | NUR ---
BM/K+ P- Patient has suspected GI bleed and K+ of 3.3 I- BM today dark and guaiac done. K+ rider given this am. Monitor H/H Q12hrs. E- Next K+ draw 1400, next H/H 1800 will monitor. No active signs on bleeding, VSS. LABS- Hct 28, Hgb 9, K+ 3.3 NEURO-A/O, ambulated in celis 150 ft [facility]- Tele SR 60'S PLUM- RA GI- Patient advanced to soft diet at dinner. See above note. - Urinal SKIN- No apparent issues PAIN- Coccyx relieved with position changes. IV- NS 20, Protonix 10 ml/hr PLAN- Monitor H/H, soft diet, d/c 1-2 days, [facility] [place] now.
[2016-04-06] VITALS (9 sets, daily range): BP systolic 118–149; BP diastolic 70–85; PULSE 59–75; RESP 18–20; O2SAT 95–99
--- NOTE | 2016-04-06 04:57 | NUR ---
PT ACTIVITY Pt has not slept very well tonight. Pt has frequently changed positions in bed, and to and from chair d/t pain in coccyx. Pt assisted to side position and supported w/ pillows, which was able to provide temporary relief. Continue to monitor. Call light in reach. Intentional rounding.
[2016-04-06 06:48] LABS: BASOPHILS % (AUTO) 0.2 % (0-3); EOSINOPHILS % (AUTO) 2.8 % (0-5); MONOCYTES % (AUTO) 12.2 % (4-12); Mean Corpuscular Hemoglobin 28.4 pg (27.0-35.0); Mean Corpuscular Volume 86.9 fL (81-100); NEUTROPHILS % (AUTO) 58.6 % (40-74); Platelet Count 123 bil/L (150-400)
[2016-04-06] MEDS: Insulin LISPRO 300 Unit/3 mL Inj SUBQ SCH ×4 (07:46→20:17)
[2016-04-06] MEDS: EPLERENONE 50 MG PO SCH (08:30)
[2016-04-06] MEDS: Pantoprazole 40 mg ER24 Tablet PO SCH ×2 (09:03→16:46)
[2016-04-06] MEDS ORDERED: Potassium Chloride Inj 30 MEQ in Dextrose 5% 100 ML IV ONE (10:05)
[2016-04-06] MEDS ORDERED: Potassium Chloride Inj 30 MEQ in Dextrose 5% 250 ML IV ONE (10:08)
--- NOTE | 2016-04-06 11:17 | PCM.PNMED ---
Subjective Date of Service Apr 06, 2016 Subjective Pt doing well today. He denies any melena, hematochezia, and hematemesis. He does complain of feeling thirsty however. No other complaints or concerns at this time. Exam Vital Signs Vital Sign - Last Date Time Temp Pulse Resp B/P Pulse Ox O2 Delivery O2 Flow Rate FiO2 04/06/16 10:15 36.9 66 18 146/72 98 Room Air Intake and Output 04/05/16 04/05/16 04/06/16 Cumulative From/Thru 15:00 23:00 07:00 04/03/16 11:56 - 04/06/16 06:30 Intake Total 1650 ml 512 ml 4966 ml Output Total 600 ml 200 ml 4200 ml Balance 1050 ml 312 ml 766 ml Intake Oral 1000 ml 400 ml 3144 ml IV Total 650 ml 112 ml 1219 ml Packed Cells 603 ml Output Urine Total 600 ml 200 ml 4200 ml # Voids 1 2 # Bowel Movements 0 1 Exam GENERAL: NAD, Pt laying in bed comfortably HEENT: AT/NC, PERRLA, EOMI, Mucus Membranes are dry today CARDIAC: RRR; No M/R/G PULM: CTAB; No wheezes or rhonchi bilaterally ABD: Soft, Nontender, Nondistended, Positive bowel sounds in all quadrants, No Hepatosplenomegaly appreciated EXT: No C/C/E; No calf tenderness bilaterally SKIN: Warm, Dry, [place], and Intact NEURO: Alert and oriented x3; Following all commands PSYCH: Normal mood and affect IVs and Medications Medications Reviewed: Medications were reviewed in detail Lab and Diagnostics Result Diagram: 04/06/1662404/06/16 0625 X-Rays, CTs and MRIs Chest xray: FINDINGS: Surgical changes and devices: Post median sternotomy. Lungs and pleura: No pleural effusions or pneumothorax. Lungs are clear. Mediastinum: Mediastinal contours appear normal. Heart size is normal. Bones and chest wall: No suspicious bony lesions. Overlying soft tissues appear unremarkable. IMPRESSION: No acute cardiopulmonary disease. Dictated by: Wes ROCK Interpreted: yRlee Cervantes MD on 04/03/2016 at 12:49 Assessment & Plan Nicho is a 66yo male on dual antiplatelet therapy for severe, diffuse CAD who presented with a symptomatic acute upper gastrointestinal hemorrhage, he has been admitted for further evaluation and treatment. EGD done immediately following admission visualized 3 duodenal ulcerations. 1. Upper GI Bleed, Acute - Continue to hold Aspirin for now - Stop IV Protonix drip - Start Protonix 40 mg PO BID now - Advance to soft diet per GI recommendations - 2 units of PRBCs transfused this admission - Bleeding appears to have stopped for now, repeat CBC in AM - GI was consulted and found multiple ulcers on endoscopy 2. Acute Blood Loss Anemia - Stable - Secondary to #1 - Transfuse if Hgb < 8.5 given his hx of severe CAD - Telemetry monitoring - Recheck CBC in AM 3. Hypernatremia - Start D5W at 110 mL/hour x24 hours - Repeat BMP in AM - Pt encouraged to drink more water 4. Hypokalemia - Will replace with KCl 30 mEq IV piggyback now - Continue telemetry monitoring - Recheck BMP in AM 5. Coronary artery disease, chronic - Cardiology (Dr Hong) has recommended continuation of clopidogrel due to his CAD and holding his aspirin due to the active GI hemorrhage. - Holding home carvedilol dosing due to his lower blood pressure, will resume once more stable - Telemetry 6. Hyperlipidemia, chronic -Continue home statin dosing 7. Hypertension, chronic, currently hypotensive - Holding losartan, will resume when his blood pressure improves - Monitoring 8. Hyperaldosteronism, chronic and presumed stable - Continue eplerenone - Monitor CMP for potential electrolyte abnormalities 9. Diabetes mellitus, type 2 with home dietary control - Once eating solid food, will have constant carbohydrate diet - Low dose correctional lispro insulin - Blood glucose monitoring 10. Disposition - Anticipate discharge to home in AM without any needs VTE Mechanical Devices: Intermittant Pneumatic CD Resuscitation Status: CPR: Attempt Resuscitation (Discussed at bedside with the patient at the time of admission) Oniel Orr MD Apr 06, 2016 11:17
[2016-04-06] MEDS: Dextrose 5% 1,000 ML IV SCH ×2 (12:00→20:17)
[2016-04-07 01:02] VITALS: BP 146/82; PULSE 68; RESP 20; O2SAT 97
[2016-04-07] MEDS: Dextrose 5% 1,000 ML IV SCH (04:08)
--- NOTE | 2016-04-07 05:03 | NUR ---
Activity, Sleep: Pt was up in celis ambulating at HS. Has been able to get a bit more sleep tonight. Has not had a BM.
[2016-04-07 05:25] VITALS: BP 113/61; PULSE 61; RESP 18; O2SAT 93
[2016-04-07 07:15] LABS: Mean Corpuscular Hemoglobin 28.1 pg (27.0-35.0); Mean Corpuscular Volume 86.5 fL (81-100)
[2016-04-07] MEDS: Insulin LISPRO 300 Unit/3 mL Inj SUBQ SCH ×2 (08:00→12:00)
[2016-04-07] MEDS: Pantoprazole 40 mg ER24 Tablet PO SCH (08:52)
[2016-04-07] MEDS ORDERED: PANT40TA3 PO (09:01)
--- NOTE | 2016-04-07 09:12 | PCM.DIMED ---
Rasheeda Hancock DO 04/07/16 0911: Discharge Instructions Date of Service Apr 07, 2016 Dates of Hospitalization Apr 03, 2016 at 14:06 Discharge Diagnosis Discharge Diagnosis Upper gastrointestinal bleeding due to duodenal ulcerations, acute, present on admission Acute Blood Loss Anemia, present on admission, improved and stable Coronary artery disease, chronic Hyperlipidemia, chronic Hypertension, chronic, hypotensive earlier in the hospitalization Hyperaldosteronism, chronic and presumed stable Diabetes mellitus, type 2 with home dietary control Medication Instructions Resume your regular home medications with the following changes: STOP aspirin START pantoprazole 1tablet by mouth twice daily. * A prescription for this medication has been sent to [facility] in [place]. Diet Other (Soft foods for 2 weeks) Activity No restrictions Call your provider Fever or Chills, Shortness of breath, Bleeding, Chest pain, Vomitting, Excessive diarrhea, Weakness (unilateral), Other (Black tarry stools or blood in your stool.) Patient Instructions Follow-up plan Please call to schedule appointments for hospital follow up with your card punching machine operator, Dr Parrish, to be seen in 7-14 days Also call to schedule a follow up with gastroenterology; this appointments should be in 7-10 days. Call [phone] to schedule your appointment with gastroenterology which is located on the 1st floor. [address] [address] Follow-up Provider: Jose D Ulloa MD Follow-up with PCP in: 1 week Provider: Sanket Parrish MD Follow-up in: 1 week Uriel Gee DO 04/07/16 1649: Discharge Instructions Attending's Statement Read and agree. Rasheeda Hancock DO Apr 07, 2016 09:11 Uriel Gee DO Apr 07, 2016 16:49
--- NOTE | 2016-04-07 09:14 | NUR ---
CATE signed. EMANUEL Stubbs
[2016-04-07 09:22] VITALS: BP 144/78; PULSE 65; RESP 18; O2SAT 98
--- NOTE | 2016-04-07 10:57 | NUR ---
Social Work-discharge: Data:EMR Reviewed. Pt is on day 4 of hospitalization for GI Bleed per H&P. Pt is medically stable to discharge today. Pt has been up independent in his room, no needs. SW followed up with pt at bedside and pt states he needs assistance scheduling a taxi(private pay) to home. VIVIEN called [employer] and [employer], both accept credit card. [employer] had cheaper quote, scheduled for 1230 to take pt to [facility] in [place]. VIVIEN updated pt and RN and both agreeable to plan. No other discharge needs identified. All updated and agreeable to plan. Assessment:Pt who is independent at baseline. Plan:Pt to discharge home today via Private pay taxi at 1230. No other discharge needs identified. All updated and agreeable to plan. EMANUEL Stubbs Addendum: 04/07/16 at 1122 by MALENA ARBOLEDA SS Taxi pushed back to 1245 per RN, VIVIEN called [employer] and changed time. EMANUEL Stubbs
--- NOTE | 2016-04-07 13:20 | NUR ---
Discharge Patient departed unit via wheelchair, accompanied by staff. Taxi to take patient to meet at [facility]. Prior to discharge, patient denied chest discomfort, shortness of breath, nausea, GI discomfort and pain. Discharge instructions/medications reviewed with patient prior to discharge. All questions addressed. Patient belongings and discharge instructions in hand. [facility]
--- NOTE | 2016-04-07 19:03 | PCM.DC.MED ---
Discharge Summary Date of Service Apr 07, 2016 Dates of Hospitalization Date of Hospital Admission Apr 03, 2016 at 14:06 Date of Discharge: Apr 07, 2016 Providers: Admitting Physician: Oniel Orr MD Primary Care Physician: Jann Sanchez MD Attending Physician: Oniel Orr MD Diagnosis at Time of Discharge Diagnosis at Time of Discharge Upper gastrointestinal bleeding due to duodenal ulcerations, acute, present on admission Acute Blood Loss Anemia, present on admission, improved and stable Coronary artery disease, chronic Hyperlipidemia, chronic Hypertension, chronic, hypotensive earlier in the hospitalization Hyperaldosteronism, chronic and presumed stable Diabetes mellitus, type 2 with home dietary control Consultations Gastroenterology consulted and performed an EGD on the date of admission, duodenal ulcerations found. Cardiology consulted and provided expertise regarding antiplatelet therapy. Procedures XRay, CTs & MRIs Chest xray: FINDINGS: Surgical changes and devices: Post median sternotomy. Lungs and pleura: No pleural effusions or pneumothorax. Lungs are clear. Mediastinum: Mediastinal contours appear normal. Heart size is normal. Bones and chest wall: No suspicious bony lesions. Overlying soft tissues appear unremarkable. IMPRESSION: No acute cardiopulmonary disease. Dictated by: Wes ROCK Interpreted: Rylee Cervantes MD on 04/03/2016 at 12:49 Invasive Procedures EGD Date of Service: Apr 03, 2016 Indication for Procedure GI bleeding Post Procedure Dx & Findings: Multiple erosions and ulcers in the stomach and the duodenum Procedure Esophagogastroduodenoscopy Patient taking aspirin and Plavix. PROCEDURE IN DETAIL: The patient was placed in left lateral decubitus position. Bite block was placed. Scope lubricated, placed in posterior pharynx, passed through the cricopharyngeus and esophagus, slowly advanced the entire length of the gastric pouch, pylorus was identified, scope passed through the pylorus and descending portion of duodenum, withdrawn in the antrum, retroflexed upon itself for view of fundus and cardia. Scope was then withdrawn through the oropharynx. The esophagus was unremarkable until the Z line. At the Z line, there was a irregularity with possible salmon-colored mucosa is less than 2 cm. No masses ulcers and erosions noted. Scope further advanced to the stomach. Retroflexion was done. Stomach was easily inflatable and deflated using air. The antrum and the pylorus showed multiple erosions seen days with surrounding inflammation. The duodenum was normal until the first pass of the duodenum. Along the first and the second pass, I counted 3 ulcers. Largest one was 1-1/2 cm with surrounding inflammation with some cratering. There was a pigmented spot. No bleeding or oozing of blood noted. We injected water right at the site. Then the pigmented spot was noted. No visible vessel. There are 2 ulcers further down. One was about a centimeter the other one was a little less than a centimeter. They both had clean base. Surrounding inflammation noted. Patient also had several 2-3 mm erosions in the same area. Biopsies not obtained due to aspirin and Plavix use. Impression Multiple antral erosions Multiple duodenal erosions At least 3 ulcers. One of the ulcer had pigmented spot. While the patient continues with the aspirin and Plavix, there is risk of one of these ulcers was in blood. Risk benefit for aspirin and Plavix has to be assessed and carefully calculated. I will defer this to cardiology and the primary care service. Recommendation Continue IV Protonix 8 mg per hour drip for the next 48 hours. Clinical diet for 48 hours. Full liquid diet after 48 hours. We will discharge the patient with soft diet for 2 weeks. Ideally would better if they could stop the aspirin and Plavix however please consult cardiology about necessity to continue the aspirin and Plavix. Presedation Assessment Risks and Benefits Informed consent was obtained from the patient after all risks and benefits including but not limited to drug reaction, infection, pain, bleeding, perforation, as well as alternatives were discussed. Patient monitoring Continuous pulse oximetry, cardiac monitoring, blood pressure monitoring, IV access, and oxygen at 2L per nasal cannula. Complications There were no periprocedural complications identified. Post Procedure Plan Post Procedure Recommendations 1. Restrict activities today. 2. Resume normal activities in the morning. 3. Resume medications. 4. GERD behavioral modification: - Avoid fatty, acidic, spicy, large meals - Do not lie down after meals - Do not eat or drink anything for at least 2 1/2 hours before going to bed at night - Discontinue tobacco and alcohol - Decrease or avoid caffeine - Avoid chocolate and mints - Decrease weight - Avoid aspirin and non steroidal anti-inflammatory agents (NSAID) such as Aleve, Advil, Mobic, Naproxen, Ibuprofen, etc 5. Add proton pump inhibitor. Take 30 minutes before 1st meal of the day. 6. Patient informed of normal post procedure side effects as bloating, drowsiness, blood streaking in the stool 7. If gastric biopsy reveal H.pylori, continue with appropriate treatment 8. If small bowel biopsy reveals celiac, continue with appropriate treatment 9. Please don't hesitate to call me with any questions Jose D Ulloa MD Apr 03, 2016 15:01 <Electronically signed by Jose D Ulloa MD> 04/03/16 1501 Brief History Per H&P: Patient is a 66-year-old male with a hx of CAD s/p CABG and coronary stent, and DM who reports to the ED via EMS complaining of lightheadedness, fatigue, shortness of breath on exertion, and nausea. He was exercising at cardiac rehab last night and after rowing for 20 minutes he experienced extreme fatigue. Before bed that night, he felt a rapid heart rate. Pt awoke in the middle of the night (0200) up to use the restroom and experienced SOB, light headedness, and nausea for about 10 minutes and then his symptoms resolved. He experienced another episode of similar symptoms six hours later. Patient had black stool in the middle of the night and has never had a bleed before. Patient went to his PCP who noted his Hb had dropped from 13 to 9.8, and sent him to the ED. Patient is not currently experiencing any symptoms and denies chest pain, shortness of breath, or fatigue while resting. Patient had a stent placed [address] Hammer, currently on Aspirin and Plavix. He states he stopped drinking recently but was previously drinking 2 20 oz beers per day. He denies NSAID or Tylenol use. No family history of colon cancer, Crohn's disease, UC, or celiac disease. In the ED, Hb 9.8, BUN 43, Cr 0.89, LFTs normal. INR pending. CXR was negative. EKG showed new T wave flattening in V3-V6 but troponin was negative. Hospital Course The following were addressed during this hospitalization: Nicho is a 66yo male on dual antiplatelet therapy for severe, diffuse CAD who presented with a symptomatic acute upper gastrointestinal hemorrhage, he has been admitted for further evaluation and treatment. EGD done immediately following admission visualized 3 duodenal ulcerations. 1. Upper gastrointestinal bleeding due to duodenal ulcerations, acute, present on admission - Held aspirin, advised the patient to start this again now that he is stable - pantoprazole IV gtt for the first 48hours of the hospitalization, then transitioned to oral pantoprazole 40mg BID - Clear liquid diet for the first 48hours, then transitioned to a soft diet which he is to continue for 2 weeks - Hemoglobin of 9.4 on the morning of discharge. 2. Acute Blood Loss Anemia, present on admission, improved and stable - Secondary to #1 - Transfusion provided at Hgb < 9 given his hx of severe CAD and recommendations from cardiology who consulted on his case - 2 units of PRBCs transfused the morning of 04/04/16 - Monitored closely and hgb remained stable at >9.2 for 48 hours prior to discharge - Telemetry monitored during the hospitalization - Recommend CBC as an outpatient in 1 week from discharge 3. Coronary artery disease, chronic - Cardiology recommended continuation of clopidogrel due to his CAD and holding his aspirin due to the active GI hemorrhage. - Aspirin restarted given the severity of his diffuse CAD 4. Hyperlipidemia, chronic - Continue home statin dosing 5. Hypertension, chronic - Held losartan when hypotensive during the early portion of his hospitalization , he is to continue with his losartan post discharge - Monitored 6. Hyperaldosteronism, chronic and presumed stable - Continued eplerenone - Monitored CMP for potential electrolyte abnormalities 7. Diabetes mellitus, type 2 with home dietary control - Soft, constant carbohydrate diet after the first 48hours of the hospitalization - Low dose correctional lispro insulin given - Blood glucose monitoring throughout the hospitalization 8. Hypokalemia, resolved - Likely secondary to gastrointestinal loss - Replaced with KCl 30 mEq IV - Monitored and remained normal post replacement Exam Vital Signs (Last) Date Time Temp Pulse Resp B/P Pulse Ox O2 Delivery O2 Flow Rate FiO2 04/07/16 09:22 36.9 65 18 144/78 98 Room Air Exam On the date of discharge: General: Sleeping in bed upon my entering the room. Comfortable appearing, awoken easily. No pallor. No acute distress. Observed ambulating in his room with ease later in the morning. HEENT: Right pupil is dilated, left constricts appropriately. Anicteric sclerae. Moist, pink mucus membranes. Neck: Supple with full range of motion. No jugular venous distension. Cardiovascular: Regular rate and rhythm without murmur, rub, or gallop appreciated Pulmonary: Clear to auscultation bilaterally without crackles, wheezes, or rhonchi. Normal respiratory effort with no use of accessory muscles. Abdomen: Normoactive bowel tones. Soft, nontender, nondistended. No hepatosplenomegaly appreciated. Extremities: No clubbing, cyanosis. Trace bilateral pitting edema distal to the knees. Skin: Normal temperature, turgor, and texture; no rash appreciated. Neurological: Cranial nerves grossly intact. Normal muscle strength, tone, and bulk. Normal speech. No known gait impairment. Alert and oriented to person, place, and time. Psychiatric: Normal mood and affect. Test 04/03/16 12:03 04/03/16 12:42 04/03/16 13:15 04/06/16 06:25 Magnesium Level 1.9mg/dL (1.6-2.6) Troponin T < 0.010ug/L (0.0-0.011) Prothrombin Time 10.3sec (8.1-12.5) Prothromb Time International Ratio 0.96ratio Urine Color Yellow (YELLOW) Urine Appearance Clear (CLEAR,HAZY) Urine pH 5.5 (5.0-8.0) Urine Specific [place] 1.015 (1.003-1.035) Urine Protein Negativemg/dL (NEG,TRACE) Urine Glucose (UA) Negativemg/dL (NEGATIVE) Urine Ketones Tracemg/dL (NEGATIVE) Urine Occult Blood Large (NEGATIVE) Urine Nitrite Negative (NEGATIVE) Urine Bilirubin Negative (NEGATIVE) Urine Urobilinogen Normalmg/dL (NORMAL) Urine Leukocyte Esterase Negative (NEGATIVE) Urine RBC 11-50/hpf (0-2) Urine WBC 0-5/hpf (0-5) Urine Epithelial Cells Occasional/hpf (NONE-MOD) Urine Crystals Uric acid crystals (NONE Urine Bacteria None/hpf (NONE-FEW) Urine Hyaline Casts None/lpf (NONE) Urine Granular Casts None seen (NONE SEEN) Urine Waxy Casts None seen (NONE SEEN) Urine Red Blood Cell Casts None seen (NONE SEEN) Urine White Blood Cell Casts None seen (NONE SEEN) Urine Mucus None seen (None Seen) Urine Trichomonas None seen (NONE SEEN) Urine Yeast None (NONE SEEN) Urinalysis Comment None Urine Culture Reflexed Not indicated Hold Urine Received (Received) Neutrophils (%) (Auto) 58.6% (40-74) Lymphocytes (%) (Auto) 26.0% (14-46) Monocytes (%) (Auto) 12.2% (4-12) Eosinophils (%) (Auto) 2.8% (0-5) Basophils (%) (Auto) 0.2% (0-3) Total Bilirubin 0.4mg/dL (0.0-1.2) Aspartate Amino Transf (AST/SGOT) 33U/L (0-50) Alanine Aminotransferase (ALT/SGPT) 49U/L (0-44) Alkaline Phosphatase 62U/L (25-160) Total Protein 5.3g/dL (6.4-8.4) Albumin 3.2g/dL (3.4-5.0) Test 04/07/16 06:25 White Blood Count 4.4th/mm3 (3.8-10.1) Red Blood Count 3.34mil/mm3 (4.40-5.80) Hemoglobin 9.4g/dL (13.8-17.2) Hematocrit 28.9% (41.0-50.0) Mean Corpuscular Volume 86.5fL (81-100) Mean Corpuscular Hemoglobin 28.1pg (27.0-35.0) Mean Corpuscular Hemoglobin Concent 32.5% (32.0-37.0) Red Cell Distribution Width 15.0% (12.3-15.4) Platelet Count 122bil/L (150-400) Sodium Level 142mEq/L (134-144) Potassium Level 3.7mEq/L (3.5-5.2) Chloride Level 105mEq/L (97-108) Carbon Dioxide Level 25mmol/L (18-29) Blood Urea Nitrogen 12mg/dL (8-27) Creatinine 0.89mg/dL (0.76-1.27) Estimat Glomerular Filtration Rate 90mL/min (>59) Glucose Level 148mg/dL (60-99) Calcium Level 8.5mg/dL (8.5-10.1) Discharge Medications Discharge Medications Atorvastatin (Lipitor) 20 Mg Tablet 20 MG PO DAILY (Reported) Carvedilol (Carvedilol) 25 Mg Tablet 25 MG PO BID (Reported) Clopidogrel Bisulfate (Plavix) 75 Mg Tablet 75 MG PO DAILY (Reported) Doxazosin (Cardura) 8 Mg Tablet 8 MG PO HS (Reported) Eplerenone (Eplerenone) 50 Mg Tablet 50 MG PO DAILY (Reported) Losartan Potassium (Losartan Potassium) 100 Mg Tablet 100 MG PO DAILY (Reported ) Nitroglycerin SL (Nitrostat) 0.4 Mg Tab.subl 0.4 MG SL Q5MIN (Reported) Pantoprazole DR (Pantoprazole DR) 40 Mg Tablet.dr 40 MG PO BIDAC Prescribed by: ASHLEE PEDRO, DO Additional med instructions Resume your regular home medications with the following changes: STOP aspirin START pantoprazole 1tablet by mouth twice daily. * A prescription for this medication has been sent to [facility] in [place]. Followup Plan Disposition: Home with outpatient follow up with: 1) gastroenterology 2) cardiology 3) primary care Follow-up plan Please call to schedule appointments for hospital follow up with your geophysical laboratory chief, Dr Parrish, to be seen in 7-14 days Also call to schedule a follow up with gastroenterology; this appointments should be in 7-10 days. Call [phone] to schedule your appointment with gastroenterology which is located on the 1st floor. [address] [address] Discharge Diet: Other (Soft foods for 2 weeks) Discharge Activity: No restrictions Follow-up Provider: Jose D Ulloa MD Follow-up with PCP in: 1 week Provider: Sanket Parrish MD Follow-up in: 1 week Time spent 40 minutes Attending Statement I have seen and evaluated patient at bedside in addition to directly supervised care provided by resident physician. I agree with above documentation. copies to: Jann Sanchez MD; Sanket Parrish MD, Rachel M DO Apr 07, 2016 19:03 Uriel Gee DO Apr 08, 2016 08:26
== END 2016-04-07 13:17 | disposition home or self-care (01) | DRG 378 ==
LOC: SED 12:24 → MPC 13:58 → SED 13:58 → OBSVTOIN 14:06 → MPC 14:06
PROVIDERS: ADMIT Family Medicine; ATTEND Family Medicine
PROC: 0DJ08ZZ Inspection of Upper Intestinal Tract, Via Natural or Artificial Opening Endoscopic (ICD-10-PCS; principal; 2016-04-03 14:00)
PROC: 30233N1 Transfusion of Nonautologous Red Blood Cells into Peripheral Vein, Percutaneous Approach (ICD-10-PCS; 2016-04-04)
DX: K26.0 Acute duodenal ulcer with hemorrhage (principal); D62 Acute posthemorrhagic anemia; E87.0 Hyperosmolality and hypernatremia; E11.9 Type 2 diabetes mellitus without complications; I25.10 Atherosclerotic heart disease of native coronary artery without angina pectoris; I10 Essential (primary) hypertension; G47.33 Obstructive sleep apnea (adult) (pediatric); E66.9 Obesity, unspecified; E87.6 Hypokalemia; E26.9 Hyperaldosteronism, unspecified; E78.5 Hyperlipidemia, unspecified; Z68.36 Body mass index [BMI] 36.0-36.9, adult; Z79.82 Long term (current) use of aspirin; Z79.02 Long term (current) use of antithrombotics/antiplatelets; Z95.1 Presence of aortocoronary bypass graft; Z98.61 Coronary angioplasty status; Z87.891 Personal history of nicotine dependence

== ENCOUNTER 2016-09-18 14:51 | Inpatient (IN) | payer MEDICARE, OTHER ==
[~2016-09-18] VITALS: Ht 188 cm; Wt 118.4 kg
[~2016-09-18 14:51] MED LIST changes: -ASPI-973 PO; +CLOP75TA3 PO; -ISOS30TA4 PO; +PANT40TA3 PO
[2016-09-18 17:33] VITALS: BP 126/70; PULSE 60; RESP 20; O2SAT 97
[2016-09-18 17:49] VITALS: PULSE 62
[2016-09-18] MEDS ORDERED: 0.9% Sodium Chloride 1,000 ML IV SCH (17:59)
[2016-09-18] MEDS ORDERED: Alum-Mag Hydrox-Simeth 30 mL Suspension PO PRN (18:00)
[2016-09-18] MEDS ORDERED: Senna-Docusate 8.6-50 mg Tablet PO PRN (18:00)
[2016-09-18] MEDS ORDERED: Ondansetron 2 mg/mL 2 mL Inj IVPUSH PRN (18:00)
[2016-09-18] MEDS ORDERED: Polyethylene Glycol (PEG) 17 Gm Powder PO PRN (18:00)
[2016-09-18] MEDS ORDERED: AMLO10TA3 PO (18:08)
[2016-09-18] MEDS ORDERED: NITR1PAT59 TOPICAL (18:08)
--- NOTE | 2016-09-18 18:30 | NUR ---
Admit to [facility] Patient arrived to [facility] via gurney as a direct admit from [facility]. Patient was able to self transfer to bed. Patient has steady gait observed. Patient had complaint of 2/10 pain to back of left shoulder/upper back area. Patient was oriented to room, staff, call light, television, visiting hours, and menu. Patient admit complete, as well as, medication reconciliation.
[2016-09-18 19:31] LABS: Magnesium 1.9 mg/dL (1.6-2.6)
[2016-09-18 19:47] LABS: TROPONIN T 1.58 ug/L (0.0-0.011)
[2016-09-18 20:11] VITALS: BP 133/75; PULSE 77; RESP 20; O2SAT 87
[2016-09-18 20:12] VITALS: O2SAT 93
--- NOTE | 2016-09-18 22:23 | PCM.HPMED ---
Subjective Date of Service Sep 18, 2016 Primary Provider: Admitting Physician: Rip Lucero Primary Care Physician: Jann Sanchez MD Attending Physician: Rip Lucero Chief Complaint: Chest pain History of Present Illness: Nicho De La Rosa is a 66-year-old man with past history significant for coronary artery disease status post CABG and multiple stents, most recent in 2016, hypertension, hyperaldosteronism, hyperlipidemia, diabetes mellitus type II, sleep apnea who presented to the [facility] emergency department today due to back and left shoulder pain that started 2 days ago with mild chest pressure this morning. Patient states that his pain started on Thursday night and he attempted to take some ibuprofen which helped ameliorate his pain temporarily. Patient also attempted to take some nitroglycerin which did not improve his back and shoulder pain. Patient notes mild shortness of breath. He denies any orthopnea, paroxysmal nocturnal dyspnea, lower extremity edema, fever, chills, nausea, vomiting, palpitations. Patient also states these had history of GI bleed and so he wanted to avoid taking extra ibuprofen. At the [facility] emergency department his vital signs were stable. Pulse ox was 99% on room air , blood pressure was 129/63, temperature was 98.1 Fahrenheit, pulse 68, respiratory rate was 20. His laboratory evaluation revealed an unremarkable CMP with BUN of 15 and creatinine of 0.9 as well as an unremarkable CBC. Of note however the patient's troponin I was 13.6. He was given a full dose of aspirin and 12.[address] Hammer was contacted and recommended aspirin, beta pablo and statin. He recommended against heparin drip as the infarction completed. The patient is to have the patient undergo a cardiac stress test tomorrow if he remains chest pain-free. Review of Systems: A comprehensive review of systems was conducted with the patient and found to be negative except as above in the History of Present Illness. Constitutional: Negative, except as otherwise mentioned in the history above. Ophthalmologic: Negative, except as otherwise mentioned in the history above. Cardiovascular: Negative, except as otherwise mentioned in the history above. Respiratory: Negative, except as otherwise mentioned in the history above. Gastrointestinal: Negative, except as otherwise mentioned in the history above. Genitourinary: Negative, except as otherwise mentioned in the history above. Musculoskeletal: Negative, except as otherwise mentioned in the history above. Neurological: Negative, except as otherwise mentioned in the history above. Psychiatric: Negative, except as otherwise mentioned in the history above. Hematologic/Lymphatic: Negative, except as otherwise mentioned in the history above. Allergic/Immunologic: Negative, except as otherwise mentioned in the history above. Allergies Coded Allergies: gabapentin (Verified Allergy, Unknown, Tachycardia - insomina, 01/29/16) spironolactone (Verified Allergy, Unknown, gynocomastia, 01/29/16) Home Medications Eplerenone 50 mg daily Carvedilol 12.5 mg twice daily Terazosin 10 mg daily Norvasc 5 mg daily Lipitor 40 mg daily losartan 50 mg twice daily Aspirin 81 mg daily PMH Coronary artery disease status post CABG and multiple stents, most recently January 2016 Hypertension Hyperaldosteronism Hyperlipidemia Type II diabetes mellitus Peripheral neuropathy Sleep apnea Nephrolithiasis BPH Surgical History CABG Multiple angioplasties Appendectomy Surgical kidney stone extraction Family History Patient denies any family history of cardiovascular disease. Social History Hx Alcohol Use: Yes (occaional) Alcoholic Drinks Per Day: 1 Hx Substance Use: Yes (long ago) Hx Tobacco Use: Yes Smoking Status: Former Smoker Exam Vital Signs Vital Sign - Last Date Time Temp Pulse Resp B/P Pulse Ox O2 Delivery O2 Flow Rate FiO2 09/18/16 20:12 93 Nasal Cannula 2.00 09/18/16 20:11 37.0 77 20 133/75 Exam General: No acute distress, well-developed, well-nourished, appropriately interactive, bearded bespectacled man in a hospital bed. HEENT: Normocephalic, atraumatic. External ears without defect. Pupils equal, round, and reactive to light and accommodation. Anicteric sclerae, moist conjunctivae, and no lid lag. Oropharynx free of erythema and cobble stoning with moist mucosa. Neck: Supple with full range of motion. No jugular venous distension. No bruits. No lymphadenopathy or thyromegaly. Cardiovascular: Regular rate and rhythm with no murmurs, rubs, or gallops appreciated Pulmonary: Clear to auscultation bilaterally with no crackles, wheezes, or rhonchi. Normal respiratory effort with no use of accessory muscles. Abdomen: Bowel tones present. Soft, nontender, nondistended. No hepatosplenomegaly or masses appreciated. Extremities: No clubbing, cyanosis, edema, or lymphadenopathy appreciated. Skin: Normal temperature, turgor, and texture; no rash, ulcers, or subcutaneous nodules appreciated. Neurological: Cranial nerves grossly intact. Normal muscle strength, tone, and bulk. Reflexes, coordination, and sensory function within normal limits. No known gait impairment. Psychiatric: Normal mood and affect. Alert and oriented to person, place, and time. Lab and Diagnostics Labs Sodium 141 Potassium 3.9 Chloride 104 Carbon dioxide 29 BUN 15 Creatinine 0.9 glucose 115 Troponin I 13.6 WBC 11.2 hemoglobin 12 hematocrit 38 platelets 148 X-Rays, CTs and MRIs From [facility]: Chest x-ray one view: No acute disease. Assessment & Plan Nicho De La Rosa is a 66-year-old man with past history significant for coronary artery disease status post CABG and multiple stents, most recent in 2015, hypertension, hyperaldosteronism, hyperlipidemia, diabetes mellitus type II, sleep apnea who presented to the [facility] emergency department today due to back and left shoulder pain that started 2 days ago with mild chest pressure this morning. NSTEMI, present on admission, active -Dr. Hammer consulted by outside emergency department. We appreciate his recommendations. -Continue aspirin, carvedilol, Lipitor. -No heparin drip per Dr. Hammer -If the patient is chest pain-free tomorrow morning he will be scheduled for a cardiac stress test -Nothing by mouth post midnight. Hold Beta pablo in AM -Echocardiogram -Telemetry monitoring -Trend troponin, EKG when necessary chest pain. Chronic issues, present on admission: Hypertension -Continue outpatient medications Hyperlipidemia -Continue statin as above Diabetes mellitus type II, diet-controlled -Monitor blood glucose. Initiate insulin therapy as necessary. Hyperaldosteronism -Continue Eplerenone CODE STATUS: Full code Patient is admitted under observation status with expected length of stay less than 2 midnights due to severity of presenting symptoms, risk of adverse event, and complexity of treatment plan VTE Prophylaxis: Sub-Q Heparin (Unfractionated) VTE Mechanical Devices: Venous Foot Pump Attending Statement The patient was seen and examined together with Dr. Bush on 09/18/16 and I agree with the history, exam and plan as outlined in the note above. Ivone Bush DO Sep 18, 2016 22:23 Rip Lucero Sep 19, 2016 19:10
[2016-09-19] VITALS (10 sets, daily range): BP systolic 118–154; BP diastolic 71–84; PULSE 67–104; RESP 18–20; O2SAT 93–96
[2016-09-19] MEDS: Sodium Chloride LOK Flush 10 mL Syringe IVFLUSH SCH ×3 (00:23→16:13)
[2016-09-19] MEDS: Heparin 5,000 Unit/mL Inj SUBQ SCH ×4 (00:23→23:21)
[2016-09-19 01:25] LABS: TROPONIN T 1.37 ug/L (0.0-0.011)
--- NOTE | 2016-09-19 04:16 | NUR ---
JAMIR Took over care at 2300. Per report, hospital CPAP set up as pt's family unable to bring in his own CPAP. Pt dozing off sitting up in bed, easily aroused. Did not want to put on CPAP at that time and said "oxygen was bugging me." Was 94% RA. Later at 0330, pt was noted to put on oxygen for comfort. Pt reported some SOB, but "the same that it's been, nothing worse." No tachypnea or retractions noted, non-labored breathing patterns. Hourly rounding.
--- NOTE | 2016-09-19 06:16 | NUR ---
TEMP Pt had temperature of 38.4 [address] at [address] Silva "New temp of 38.4 C, currently NPO for cardiac workup." Awaiting reply.
[2016-09-19] MEDS ORDERED: Acetaminophen IV 1,000 MG in IV Premix 1 EACH IV ONE (06:25)
[2016-09-19] MEDS ORDERED: 0.9% Sodium Chloride 100 ML ONE ×2 (06:29→16:03)
[2016-09-19 07:04] LABS: BASOPHILS % (AUTO) 0.2 % (0-3); EOSINOPHILS % (AUTO) 0.2 % (0-5); MONOCYTES % (AUTO) 14.9 % (4-12); Mean Corpuscular Volume 77.8 fL (81-100); NEUTROPHILS % (AUTO) 74.1 % (40-74); Platelet Count 140 bil/L (150-400)
[2016-09-19 09:36] LABS: APPEARANCE,URINE CLEAR (CLEAR,HAZY); COLOR,URINE YELLOW (YELLOW); OCCULT BLOOD,URINE TRACE (NEGATIVE); PH,URINE 5.5 (5.0-8.0); UROBILINOGEN,URINE NORMAL (NORMAL)
--- NOTE | 2016-09-19 10:52 | NUR ---
Case Management: IMM given and explained to pt. Luanne AGUAYO RN
--- NOTE | 2016-09-19 11:06 | DRSVH ---
PROCEDURE: X-RAY CHEST, TWO VIEWS ([id number]) INDICATIONS: fever TECHNIQUE: 2 views of the chest were acquired. COMPARISON: None. FINDINGS: Surgical changes and devices: Sternotomy wires are present from CABG procedure in the past. Lungs and pleura: Compared to previous images are some streaky disease at both lung bases and in the lateral view currently blunting of the costophrenic sulci. The appearance would suggest small bibasil ar infiltrates postero-inferiorly. Mediastinum: Mediastinal contours are normal. Heart size is normal. Bones and chest wall: No suspicious bony abnormalities. Soft tissues appear unremarkable. IMPRESSION: Bilateral postero-inferior infiltrates consistent with small pneumonias. Dictated by: Thad Valverde M.D. on 09/19/2016 at 10:33 Approved by: Thad Valverde M.D. on 09/19/2016 at 11:04
--- NOTE | 2016-09-19 11:46 | DRSVH ---
[facility] [address] [place] [place] [address] Echocardiogram Report Name: BRE RED LStudy Date: 09/19/2016 Height: 74 in Hospital Exam Location: [facility] Weight: 264 lb Gender: Other BSA: 2.4 m2 : 1950 Age: 66 yrs BP: 132/78 mmHg Reason For Study: NSTEMI Ordering Physician: HANNAH CASTELLON Performed By: Hay Schwartz Referring Physician: Elias JASSO Interpretation Summary The study quality was technically difficult. A contrast injection of Definity was performed to improve assessment of LV function. Left ventricular ejection fraction is estimated to be 40 +/- 5%. Inferolateral, apical lateral and inferior hypokinesis is noted. Both atria are moderately dilated. The ascending aorta is mildly enlarged. There is no significant valvular heart disease. Procedure: A two-dimensional transthoracic echocardiogram with color flow and Doppler was performed. The study quality was technically difficult. Comparison is made with the echocardiogram of 06/26/16. A contrast injection of Definity was performed to improve assessment of LV function. The patient was in normal sinus rhythm during the exam. The patient had occasional PACs during the exam. Left Ventricle: The left ventricle is moderately dilated. Left ventricular wall thickness is mildly increased. Left ventricular ejection fraction is estimated to be 40 +/- 5%. Inferolateral, apical lateral and inferior hypokinesis is noted. Right Ventricle: The right ventricle is normal in size and function. Atria: Both atria are moderately dilated. The interatrial septum is intact with no evidence for an atrial septal defect. Mitral Valve: The mitral valve is normal in structure and function. There is trace mitral regurgitation. Aortic Valve: The aortic valve is trileaflet. The aortic valve opens well. The aortic valve is slightly calcified. No aortic regurgitation is present. Tricuspid Valve: The tricuspid valve is normal in structure and function. No tricuspid regurgitation. Pulmonary artery pressures cannot be estimated because of the lack of a measurable TR jet velocity. Pulmonic Valve: The pulmonic valve is normal in structure and function. There is no pulmonic valvular regurgitation. Great Vessels: The aortic root is normal size. The ascending aorta is mildly enlarged. The aortic arch is mildly enlarged. The pulmonary artery is normal size. The IVC is dilated (diameter is greater than 2.1 cm) yet it collapses greater than 50% with a sniff. This suggests a right atrial pressure of 8 mm Hg. Pericardium/ Pleura There is no pericardial effusion. There is no pleural effusion. MMode/2D Measurements & Calculations LVIDd: 6.4 cm LA dimension: 4.8 cm RA long axis: 5.0 cm Ao root diam LVIDs: 4.1 cm FS: 36.7 % LA A2 area: 28.6 cm RA area: 25.3 cm Aortic Jxn: 3.0 cm EPSS: 1.0 cm LA A4 area: 31.0 cm RA vol: 109.5 ml asc Aorta Diam IVSd: 1.2 cm LA length (vol) RA : 44.8 ml/m2 LVPWd: 1.1 cm Ao Arch Diam (Prox LA vol: 112.6 ml Trans): 3.3 cm LA vol index IVC diam: 2.7 cm EDV(MOD-sp2) LV iverson. diameter/BSA LV sys. diameter/BSA RVD1 (basal) (cm/m^2): 2.6 (cm/m^2): 1.7 : 4.0 cm ESV(MOD-sp2) EF(MOD-sp2) RVD2 (mid) : 4.0 cm Doppler Measurements & Calculations Ao V2 max MV E max fred MV E/A: 1.4 PA V2 max : 120.3 cm/sec : 64.0 cm/sec Med Peak E' Fred : 74.8 cm/sec Ao max PG MV A max fred PA mean PG : 5.8 mmHg : 46.8 cm/sec E/E' med: 11.5 Ao mean PG Lat Peak E' Fred PA Accel Time : 3.4 mmHg : 0.11 sec E/E' lat: 11.9 E/e' average: 11.7 MV dec time Ao V2 mean PA V2 mean : 0.13 sec : 90.3 cm/sec : 59.1 cm/sec Ao V2 VTI: 28.0 cm PA pr(Accel) : 29.1 mmHg Electronically signed by: Jacinto Christie on Reading Physician:09/19/2016 11:45 AM
--- NOTE | 2016-09-19 15:35 | PCM.PNMED ---
Subjective Date of Service Sep 19, 2016 Subjective Denies any new issues/complaints. No further CP since admission Exam Vital Signs Vital Sign - Last Date Time Temp Pulse Resp B/P Pulse Ox O2 Delivery O2 Flow Rate FiO2 09/19/16 10:21 36.8 68 18 118/80 95 Room Air 09/19/16 06:09 2.00 Intake and Output 09/18/16 09/18/16 09/19/16 Cumulative From/Thru 15:00 23:00 07:00 09/18/16 17:31 - 09/19/16 06:11 Intake Total 604 ml 604 ml Balance 604 ml 604 ml IV Total 604 ml 604 ml General: Alert, Cooperative, No Acute Distress Head: Normal Eyes: Scleral Anicteric Nose: Mucous Membr Moist/[place] Mouth: Mucous Membr Moist/[place] Neck: Supple Chest & Lungs: Chest Wall Normal, Clear to auscultation & percussion Cardiovascular: Regular Rate/Rhythm Pulses: NL carotid, radial, femoral, DP, PT Abdomen: Non-tender, Non-distended, Normoactive bowel tones, Soft Extremities: No cyanosis/clubbing/edma bilat Neurological: Grossly Neurologically Intact, Normal Speech IVs and Medications Medications Reviewed: Medications were reviewed in detail Lab and Diagnostics Result Diagram: 09/19/1664009/19/16640 X-Rays, CTs and MRIs From [facility]: Chest x-ray one view: No acute disease. Assessment & Plan 66-year-old man with past history significant for coronary artery disease status post CABG and multiple stents, most recent in 2016, hypertension, hyperaldosteronism, hyperlipidemia, diabetes mellitus type II, sleep apnea who presented to the [facility] emergency department due to back and left shoulder pain that started 2 days earlier # Acute fever on 09/19/16 likely due to acute community acquired pneumonia ( based on CXR). Present on admission. - Start Ceftriaxone + Azithro - Check blood culture - Followup # Acute NSTEMI, present on admission, active -Cardiology consulted today. I discussed with cardiology today. Input appreciated. Will followup with recs -Continue aspirin, carvedilol, Lipitor for now -No heparin drip per Dr. Hammer earlier -Echocardiogram as noted above -Telemetry monitoring -Initial plan was for stress test but now awaiting further recommendations by cardiology # Hypertension. Stable -Continue outpatient medications # Hyperlipidemia. Stable. -Continue statin as above # Diabetes mellitus type II, diet-controlled -Monitor blood glucose. -ISS # Hyperaldosteronism -Continue Eplerenone Dispo: 2-3 days VTE Prophylaxis: Sub-Q Heparin (Unfractionated) VTE Mechanical Devices: Venous Foot Pump Rip Lucero Sep 19, 2016 15:35
[2016-09-19] MEDS: cefTRIAXone Inj 2,000 MG in Dextrose 5% Minibag Plus 50 ML IV SCH (16:08)
[2016-09-19] MEDS: Insulin Human REGular 300 Unit/3 mL Inj SUBQ SCH ×2 (16:17→21:37)
--- NOTE | 2016-09-19 16:48 | NUR ---
Uneventful Day Pt alert and oriented cooperative with staff and care. Start of shift pt had a temp of 38.4, received IV APAP with good results 36.8. Denies pain or discomfort, has napped on and off most of the day, pt was NPO most of the day waiting for verification of STRESS test today. Per communication cardiac meds held for stress test, which was postponed until tomorrow but hasn't been confirmed-MD aware. Pt currently resting in bed with call light within reach, bed low and locked, intentional rounding.
--- NOTE | 2016-09-19 18:32 | CONS ---
[address] [address] CONSULTATION REPORT PATIENT: BRE RED : 1950 MR#: [id number] ADMIT: 09/18/2016 JOB ID: [id number] DATE OF SERVICE: 09/19/2016 CHIEF COMPLAINT: I was asked by the hospital team to consult on this patient who was transferred here yesterday. HISTORY OF PRESENT ILLNESS: The patient is a 66-year-old man with history of bypass surgery as well as a stent, with his last stent placed last January. This was placed to the distal circumflex artery. He says that he has been followed up regularly by his project mgr and has problems with chronic edema. However, has not had problems with chest pain or shortness of breath. The other day, he developed discomfort that he did not know was related to a heart attack but when it persisted, he went to [facility] yesterday and was found to have an elevated troponin. He also had EKG changes that just looked slightly more pronounced than previous ones on an old EKG. Because he had no acute EKG changes his case was discussed with Dr. Cabrera solution engineer, who felt that the patient did not necessarily need to be transferred as he completed his DC. I am asked to see him because he has an elevated troponin. He does not have any chest pressure, chest tightness. He says he feels like his breathing is not good although he has not been able to walk around as yet. He denies orthopnea, PND, increased lower extremity edema. He says he just does not feel right. PAST MEDICAL HISTORY/PROBLEM LIST: 1. History of coronary disease, status post bypass grafting, with a history of BUCKLEY to LAD, free segment of BUCKLEY to the diagonal in 1991, right and left circumflex were not bypassed at that time, and then he as noted had to have a stent placed to the distal circumflex artery in January 2016. 2. Hypertension. 3. Hyperaldosteronism. 4. Hyperlipidemia. 5. Diabetes mellitus. 6. Peripheral neuropathy. 7. Sleep apnea. 8. BPH. HOME MEDICATIONS: Included: 1. Eplerenone 50 mg daily. 2. Carvedilol 12.5 b.i.d. 3. Terazosin 10 mg daily. 4. Norvasc 5 daily. 5. Lipitor 40 daily. 6. Losartan 50 mg b.i.d. 7. Aspirin 81 mg daily. ALLERGIES: 1. GABAPENTIN. 2. SPIRONOLACTONE. SOCIAL HISTORY: Former smoker. No significant alcohol use. FAMILY HISTORY: No early coronary disease. REVIEW OF SYSTEMS: Overall health: No fevers, chills, night sweats, or weight loss. GI: Denies problems with ulcers or blood in his stool. : No dysuria, hematuria. Endocrine: No heat or cold intolerance. Pulmonary: No history of lung disease but he says he feels short of breath. Heme: No easy bruising or bleeding. Cardiac: As per HPI. Derm: No rash or skin breakdown. Neuro: No history of chronic headaches. Ophtho: No acute vision changes. ENT: No sore throat, difficulty hearing. Psych: No acute issues. All other review of systems on a 12 point review of systems are negative. PHYSICAL EXAMINATION: Blood pressure is 124/73, he is afebrile. Heart rate 76, sats are 94% at 2 L. Constitutional: In no acute distress. Speaking in full sentences without apparent shortness of breath. Head : Normocephalic, atraumatic. Neck: No obvious JVD. Heart exam: Regular rate and rhythm. I do not appreciate murmurs, gallops, rubs. Lungs: No crackles or wheezes appreciated. Back: No CVA tenderness to palpation. Abdomen: Soft, nondistended. Extremities are warm with mild edema, 1+ distal pulses. Skin without breakdown appreciated. Neuro: Alert, oriented x3. Gait is not tested. Psych: Appropriate mood and affect. Ophtho: Vision grossly intact. ENT: Mucous membranes are moist.Vascular: no carotid bruits LABORATORIES: Show a white count 3.2, an H and H of 11.7, 36.4, platelets of 140,000. Chemistry: Last CPK showed a CPK of 387 with a troponin of 1.37. His CPK upon arrival here was 525 with a troponin of 1.58. Sodium 140, potassium 3.8, chloride and bicarb 103 and 24, respectively. BUN and creatinine 13.89. Cholesterol 140, LDL 89, HDL 36. IMAGING: Shows a chest x-ray that shows possible small pneumonias, although his calcitonin is not elevated. Medications at this time include subcu heparin. He was not recommended to be put on heparin by Dr. Cabrera. He is on ceftriaxone, azithromycin, losartan 100 mg daily, Plavix 75 daily, aspirin 81 mg a day, Lipitor 40 mg q.h.s., eplerenone 50 daily, carvedilol 25 b.i.d., insulin sliding scale. I should note that the patient said he has been taking clopidogrel at home in addition to aspirin. An echocardiogram was done today. I have not reviewed it myself as yet but it reportedly shows inferolateral, apical lateral and inferior hypokinesis. EF was estimated 40, plus or minus 5%. No comparison to previous. IMPRESSION: Electrocardiogram shows inferolateral electrocardiogram changes. They are somewhat more pronounced. On his last electrocardiogram these were attributed to left ventricular hypertrophy with repolarization changes. The patient has a history of bypass surgery, history of stents back last January. He tells me he has been taking aspirin and Plavix. He has not had any problems with chest pain or chest pressure prior to his admission. Unfortunately he had some symptoms the day before his arrival to [facility]. He went in and ultimately his labs were up. Today he does not have any more chest discomfort. He just feels off, and he says he feels his breathing is off as well. EKG echo shows wall motion abnormalities. PLANS AND RECOMMENDATION: 1. We have to assess how he is feeling at this time. Originally, Dr. Cabrera had suggested a stress test which might be reasonable to do to see if there is any lemuel-infarct ischemia. I would also advise that he walk around and see how he feels if in fact we are going to treat him conservatively throughout this course. 2. Should he have easily provoked ischemia or an abnormal stress test (the need for this will be reviewed tomorrow), he may need to have cardiac catheterization. I discussed these findings with him. I discussed my thoughts and how we were going to proceed depending on how he does. He expressed understanding. I spent 45 minute with greater than 50% [id number] time with this patient discussing his symptoms, reviewing his medical records from the cardiology clinic, reviewing his cath reports and echo reports, examining him and discussing plans for further evaluation. RUBIA
--- NOTE | 2016-09-19 23:06 | NUR ---
CHEST PAIN Pt c/o chest pain at 2300. Pt stated, "It's not that bad, it's really the cpap and oxygen bugging me." Ordered STAT EKG, paged RT Court. HR low 100s, BP 140s/80s. Continuing care. Addendum: 09/20/16 at 0032 by MITCHEL WHARTON RN Chest pain relieved after 1 tablet of nitro. Tylenol also given for generalized discomfort. Continuing care.
[2016-09-20] VITALS (15 sets, daily range): BP systolic 115–141; BP diastolic 64–80; PULSE 67–78; RESP 8–24; O2SAT 93–99
[2016-09-20] MEDS: Sodium Chloride LOK Flush 10 mL Syringe IVFLUSH SCH ×4 (00:04→22:44)
[2016-09-20 04:53] LABS: BASOPHILS % (AUTO) 0.3 % (0-3); EOSINOPHILS % (AUTO) 0.8 % (0-5); MONOCYTES % (AUTO) 18.6 % (4-12); Mean Corpuscular Hemoglobin 25.2 pg (27.0-35.0); Mean Corpuscular Volume 78.2 fL (81-100); NEUTROPHILS % (AUTO) 65.5 % (40-74); Platelet Count 124 bil/L (150-400)
[2016-09-20 05:16] LABS: INR 1.05 ratio
[2016-09-20 05:39] LABS: Magnesium 1.8 mg/dL (1.6-2.6)
[2016-09-20] MEDS: Insulin Human REGular 300 Unit/3 mL Inj SUBQ SCH ×4 (07:30→22:00)
[2016-09-20] MEDS: Heparin 5,000 Unit/mL Inj SUBQ SCH ×3 (07:57→22:33)
[2016-09-20] MEDS ORDERED: Heparin 1,000 Units/500 mL NS Premix IV ONE ×2 (12:19→15:59)
[2016-09-20] MEDS ORDERED: Heparin 1,000 Unit/mL 10 mL Inj ONE ×2 (12:20→16:20)
[2016-09-20] MEDS ORDERED: Heparin 10,000 Unit/1,000 mL NS Premix IV ONE ×2 (12:20→15:52)
--- NOTE | 2016-09-20 14:09 | NUR ---
Social work Note - Initial Assessment Nicho De La Rosa is a 66 yr old admitted for Nstemi. EMR reviewed: Pt has Medicare and [facility] blue shield. His PCP is Dr Sanchez. No LTC or VA benefits. No DPOA - HOT [employer] provided paperwork. Readmit score is 2. See attached CM initial assessment. HOT DIE PICKER met with pt - introduced D/C planning and explained SW role. Pt lives at home with his . He is independent at baseline, no DME, drives. He states that he is to go to the matlab developer today - is hoping to go home with no anticipated needs. HOT DIE PICKER provided Discharge Planning Checklist - Pt denies any questions, HOT DIE PICKER provided support. HOT DIE PICKER will follow if needs arise. Plan: Home with in POV - No needs identified. DANIEL Hayden Addendum: 09/20/16 at 1412 by LAMIN DENTON SS Amended: Links added.
--- NOTE | 2016-09-20 14:30 | NUR ---
2nd IV Patient going to [facility] laboratory for procedure. Patient had one 20 gauge peripheral IV in left wrist and nurse placed second 20 gauge peripheral IV in left antecubital in one attempt. Both IVs flushed and patent.
--- NOTE | 2016-09-20 14:46 | NUR ---
To can labeler Patient telemetry removed. 2nd IV placed in left AC. Patient voided and explained to he will go to the second floor after procedure. Patient taken to brick and blocker aid labor via bed.
[2016-09-20] MEDS ORDERED: fentaNYL-PF 50 mCg/mL 2 mL Inj ONE ×4 (14:55→16:34)
[2016-09-20] MEDS ORDERED: Nitroglycerin 50,000 mcg/250 mL D5W Premix IV ONE (15:20)
[2016-09-20] MEDS ORDERED: Amiodarone 50 mg/mL 3 mL Inj ONE (15:39)
[2016-09-20] MEDS ORDERED: Abciximab Bolus 2 mg/mL 5 mL Inj ONE (16:30)
--- NOTE | 2016-09-20 17:06 | PCM.PNMED ---
Subjective Date of Service Sep 20, 2016 Subjective Denies any new issues/complaints. Had some more chest discomfort last night Exam Vital Signs Vital Sign - Last Date Time Temp Pulse Resp B/P Pulse Ox O2 Delivery O2 Flow Rate FiO2 09/20/16 12:32 37.3 78 20 122/70 97 Nasal Cannula 2.00 Intake and Output 09/19/16 09/19/16 09/20/16 Cumulative From/Thru 15:00 23:00 07:00 09/18/16 17:31 - 09/20/16 06:17 Intake Total 640 ml 574 ml 300 ml 2118 ml Output Total 925 ml 175 ml 950 ml 2050 ml Balance -285 ml 399 ml -650 ml 68 ml Intake Oral 500 ml 518 ml 300 ml 1318 ml IV Total 130 ml 56 ml 790 ml Tube Irrigant 10 ml 10 ml Output Urine Total 925 ml 175 ml 950 ml 2050 ml # Voids 2 2 Exam General: Alert, Cooperative, No Acute Distress Head: Normal Eyes: Scleral Anicteric Nose: Mucous Membr Moist/[place] Mouth: Mucous Membr Moist/[place] Neck: Supple Chest & Lungs: Chest Wall Normal, Clear to auscultation bilat Cardiovascular: Regular Rate/Rhythm Pulses: NL carotid, radial, femoral, DP, PT Abdomen: Non-tender, Non-distended, Normoactive bowel tones, Soft Extremities: No cyanosis/clubbing/edema bilat Neurological: Grossly Neurologically Intact, Normal Speech IVs and Medications Medications Reviewed: Medications were reviewed in detail Lab and Diagnostics Result Diagram: 09/20/1641909/20/16 042 X-Rays, CTs and MRIs From [facility]: Chest x-ray one view: No acute disease. Assessment & Plan 66-year-old man with past history significant for coronary artery disease status post CABG and multiple stents, most recent in 2016, hypertension, hyperaldosteronism, hyperlipidemia, diabetes mellitus type II, sleep apnea who presented to the [facility] emergency department due to back and left shoulder pain that started 2 days earlier # Acute fever on 09/19/16 likely due to acute community acquired pneumonia ( based on CXR). Present on admission. - Started Ceftriaxone + Azithro (Day 2) - Followup blood culture # Acute NSTEMI, present on admission, active - Appreciate Cardiology consult. I discussed with cardiology today. Input appreciated. Will followup with recs - Continue aspirin, carvedilol, Lipitor for now - Plan for cath today - Echocardiogram as noted above # Hypertension. Stable - Continue outpatient medications # Hyperlipidemia. Stable. - Continue statin as above # Diabetes mellitus type II, diet-controlled - Monitor blood glucose. - ISS # Hyperaldosteronism - Continue Eplerenone Dispo: 1-2 days pending cardiac workup VTE Prophylaxis: Sub-Q Heparin (Unfractionated) VTE Mechanical Devices: Venous Foot Pump Rip Lucero Sep 20, 2016 17:06
[2016-09-20] MEDS ORDERED: 0.9% Sodium Chloride 250 ML BOLUS IV PRN (17:30)
[2016-09-20] MEDS ORDERED: Ondansetron 2 mg/mL 2 mL Inj IVPUSH PRN (17:30)
[2016-09-20] MEDS ORDERED: Sodium Chloride LOK Flush 10 mL Syringe IVFLUSH PRN (17:30)
[2016-09-20] MEDS ORDERED: 0.9% Sodium Chloride 400 ML (4 HRS) IV ONE (17:30)
[2016-09-20] MEDS ORDERED: Atropine 1 mg/10 mL (Code) Syringe IVPUSH PRN (17:30)
--- NOTE | 2016-09-20 17:49 | NUR ---
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 Pt A&Ox3, sleepy or groggy, vitals stable, placed on MP30 in SR 65. No c/o pain. Right groin site soft and non tender with no oozing. aware of transfer and MD rounding. Flat bedrest till 1900, 30 degree till 2200. NS at 100 for 8 hours.
[2016-09-20] MEDS: HYDROcodone-APAP 5-325 mg Tablet PO PRN ×2 (17:58→22:42)
[2016-09-20] MEDS: cefTRIAXone Inj 2,000 MG in Dextrose 5% Minibag Plus 50 ML IV SCH (18:05)
[2016-09-20] MEDS ORDERED: Furosemide 10 mg/mL 2 mL Inj IV ONE (20:15)
[2016-09-20] MEDS ORDERED: Potassium Chloride 20 mEq SR Tablet PO ONE (20:15)
--- NOTE | 2016-09-20 20:59 | CS94 ---
[address] [address] DIAGNOSTIC CARDIAC CATHETERIZATION PATIENT: BRE RED : 1950 MR#: [id number] ADMIT: 09/18/2016 JOB ID: [id number] SERVICE DATE: 09/20/2016 PROCEDURES PERFORMED: 1. Graft angiography. 2. [place] coronary angiography. 3. Intravascular ultrasound of the circumflex artery. 4. Percutaneous intervention of the circumflex artery. INDICATION: This is a 66-year-old man who presented with a [id number] [place]. He had provocable ischemia and dynamic EKG changes in the posterior distribution without any exertion. Given this, he presents for further assessment by cardiac catheterization. DESCRIPTION OF PROCEDURE: Informed consent was obtained. Patient brought to the catheterization laboratory. Bilateral groins were prepped and draped in sterile fashion. The right femoral artery was anesthetized with lidocaine. Using micropuncture kit and modified Seldinger technique, access was obtained and a 5-Kittitian sheath was advanced. Next, a 5-Kittitian JL4 catheter was advanced over a wire and used to cannulate the left coronary artery and angiography was obtained. This catheter was removed and a 5-Kittitian JR4 catheter was used to cannulate the right coronary artery and angiographic views obtained. This catheter was also used to go into the left subclavian artery where it was exchanged out for a 5-Kittitian VASQUEZ catheter which was used to cannulate the BUCKLEY to obtain views of the BUCKLEY to LAD. This also was used to get some views of the graft to the diagonal vessel. Ultimately, a left coronary bypass catheter was used to get better views of the bypass graft to the diagonal. After coronary angiography was complete, given findings of an occluded mid circumflex artery and intervention was planned. Ultimately, the 5-Kittitian sheath was exchanged out for a 6-Kittitian sheath. A 6-Kittitian CLS4 guide was advanced over a wire and used to cannulate the left coronary artery. Heparin was given for anticoagulation. A Prowater wire would not advance across the area of occlusion in the vessel. A fine cross catheter was used and this was put over the Prowater wire into the early part of the vessel. Ultimately, a Whisper wire finally facilitated passage to the distal vessel. The Fine Cross was passed down distally and injection was performed to confirm that it was intraluminal. Next, a 2.5 mm balloon was advanced to the area of occlusion. This was inflated to nominal pressures. IVUS was then advanced in the vessel and it revealed that the area of occlusion was in a prior area of stenting (TALISHA), which had been stented with a 4 mm stent. The stent distal to the area of stenosis appeared to be expanded in the range of 3 mm. In the area of interest it was closer to 3.5 mm and in some aspects it appeared closer to 4. Thus, a 3.5 noncompliant balloon was advanced to the area of occlusion and inflated to nominal pressures on multiple occasions. Ultimately, IVUS was again passed into the area of occlusion and there was still some residual in-stent restenosis in the area of interest. Therefore, a 4 x 15 mm balloon was advanced to the area of occlusion and inflated to 12 atmospheres for 30 seconds. Followup angiographic views after balloon dilation and IC nitroglycerin revealed an excellent angiographic result with no significant residual stenosis, brisk flow in the artery, and no significant residual stenosis. The case was ended. Angiographic view of the right femoral access site was reviewed prior to achieving hemostasis with StarClose device. There were no complications. FINDINGS: CORONARIES: 1. Left main: This does not have any significant disease. 2. Left anterior descending artery: This is occluded as it was previously documented. The BUCKLEY to LAD is patent. 3. Circumflex artery: This vessel is occluded in its early mid segment in an area of prior stenting which was then confirmed by IVUS. As noted, this was crossed with some difficulty but ultimately crossed with a Fine Cross and a Whisper wire. This restored flow after balloon dilation x1. This restored flow distally. This was assessed with IVUS to see the size of the stent and also to assist in post dilation. Ultimately, serial balloon inflations were performed in the area of occlusion with the highest being a 4 mm noncompliant balloon and ultimately this restored excellent flow in the artery with no significant stenosis. As this was an area of prior stenting which was a drug-eluting stent, it was not felt that placing another stent would be of benefit. 4. The circumflex artery also provides collaterals to the distal right coronary artery. 5. Right coronary artery: This vessel is occluded in its proximal section, although there is flow going into the mid segment which may be through bridging collaterals. The distal right coronary artery filled via left to right collaterals. 6. BUCKLEY to LAD. This is widely patent. The distal left anterior descending artery is fairly small in caliber and does have a stenosis in its apical segment. However, the vessel is quite small in caliber at this point, looking in the range of 1.5 or less in diameter. In comparison to other films, this is somewhat better visualized than in the previous angiogram and therefore it is not clear if this was present previously. 7. Graft to the diagonal: This appears to be widely patent, filling the graft without any significant issues. Hemodynamics (per laborer [employer] report) Medications: heparin to achieve a therapeutic ACT and conscious sedation (as per laborer [employer] report) IMPRESSION: 1. Evidence for an occluded circumflex artery, the culprit vessel. 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 This was treated successfully with balloon dilation with serial increase in sizes of balloons up to 4 mm in caliber. IVUS was used to assess the stent size as well as the final result. 2. Patent graft to the left anterior descending, though there is some disease in the distal left anterior descending where it is quite small in caliber. 3. The graft to diagonal appears patent. The right coronary artery is occluded as previously documented and does fill via collaterals. MTDD
[2016-09-21 00:01] VITALS: BP 115/69; PULSE 71; RESP 20; O2SAT 97
--- NOTE | 2016-09-21 00:24 | NUR ---
SOB Pt c/o SOB at rest, not relieved when we were able to put HOB up to 30 degrees per post cath recovery orders. At start of shift pt was 4-5L NC, sats mid to high 90s but stated "I feel like I can't take a deep breath." Pt was placed on oxymask, O2 turned up to 6L for comfort and Dr. Hedrick came to see pt at that time. Orders given to stop IV fluids and given one time Lasix and potassium dose. Pt urinated over 2L so far this shift and did state he had relief of SOB after Lasix. Pt still noted to have SOB w/ exertion, sats maintain WNL w/ activity as long as O2 stays on. O2 titrated back down to 4L w/ sats in mid 90s. All other recovery vitals stable, see EMR. Patient denied any chest pain throughout, verbalized understanding to inform nursing if this were to occur. Ongoing Care
[2016-09-21 03:01] VITALS: BP 123/73; PULSE 80; RESP 23; O2SAT 97
[2016-09-21 04:56] VITALS: PULSE 74
[2016-09-21] MEDS: Insulin Human REGular 300 Unit/3 mL Inj SUBQ SCH ×3 (07:30→16:59)
[2016-09-21] MEDS: Sodium Chloride LOK Flush 10 mL Syringe IVFLUSH SCH ×2 (08:02→16:30)
[2016-09-21] MEDS: Heparin 5,000 Unit/mL Inj SUBQ SCH ×3 (08:02→16:30)
[2016-09-21] MEDS ORDERED: Furosemide 10 mg/mL 2 mL Inj IVPUSH SCH (08:35)
[2016-09-21 08:56] VITALS: BP 127/67; PULSE 77; RESP 16; O2SAT 93
--- NOTE | 2016-09-21 11:00 | PROG NOTE ---
[address] [address] PROGRESS NOTE PATIENT: BRE RED : 1950 MR#: [id number] ADMIT: 09/18/2016 JOB ID: [id number] DATE: 09/21/2016 CHIEF COMPLAINT: The patient was admitted for a non-ST elevation MA. He is now status post trip to the cardiac catheterization technician where it was found his circumflex was completely occluded. This was at a site of previous stenting. This was treated with balloon angioplasty alone as this was all in an area of a drug-eluting stent. The results were very good, however. No other contributory disease was identified. Last night he felt like he could not breathe right and so he was given some Lasix and he diuresed a couple of L and he feels much better today. He denies any chest pain, increased shortness of breath. He is eating breakfast at this time. PHYSICAL EXAMINATION: Blood pressure 122/67. He is afebrile. Heart rate, sats are 93% on room air. General in no acute distress. Speaking in full sentences without apparent shortness of breath. Head and neck exam normocephalic, atraumatic. Heart exam regular rate and rhythm. Lungs sound clear. Back no CVA tenderness to palpation. Abdomen is soft. Extremities: Warm only trace edema. Good distal pulses. Groin site is soft with no significant bruising and no swelling. CURRENT MEDICATIONS: Include: 1. Subcu heparin. 2. Furosemide was just added as an IV push. 3. Azithromycin 500 mg a day. 4. Eplerenone 50 mg daily. 5. Plavix 75 daily. 6. Carvedilol 25 b.i.d. 7. Aspirin 81 mg a day. 8. Losartan 100 mg daily. LABORATORIES: Today show sodium 140, potassium 3.9, chloride and bicarb of 102 and 24 respectively. BUN and creatinine 14 and 0.86. IMPRESSION: The patient is doing much better at this time. He is status post balloon angioplasty to an area of occlusion secondary to restenoses of a previously placed drug-eluting stent. This was a large stent and therefore this was treated balloon angioplasty alone and got good results. He feels better. He responded to Lasix and this is likely due to some volume overload given his recent myocardial infarction. He has also been written for another dose today. PLANS AND RECOMMENDATION: 1. He tells me he has had problems with aspirin in terms of gastrointestinal bleeding. He could go on a baby aspirin for a month or a baby aspirin every couple of days along with clopidogrel. He has been taking clopidogrel as an outpatient. 2. His blood pressures look fairly good. We could hold amlodipine at this time as he seems to be having good blood pressures without any need for extra agents. 3. Continue with statin. 4. Regarding infection pneumonia, I will leave that to the hospital team to see if he needs to continue with antibiotics. I would like to get him to walk around today and see how he feels, make sure he does not feel short of breath. After his other dose of Lasix, if he feels well enough it is possible he could go home today with an oral dose of Lasix with perhaps a small potassium supplementation as he is on eplerenone and losartan. I will discuss with the hospital team. 30 minutes was spent with the patient discussing his diagnosis and making plans for follow up RUBIA
[2016-09-21 11:27] VITALS: BP 111/64; PULSE 79; RESP 21; O2SAT 94
--- NOTE | 2016-09-21 12:31 | NUR ---
Blood Sugar Blood Sugar was 197 at lunchtime. Sliding scale called for 1 unit of Insulin, which pt refused. He stated he is diet controlled. Asked me to recheck his sugar later and it came down to 147. Will inform
[2016-09-21 12:44] VITALS: PULSE 72
[2016-09-21] MEDS ORDERED: FURO-129 PO (12:47)
[2016-09-21] MEDS ORDERED: ASPI81TA3 PO (12:47)
[2016-09-21] MEDS ORDERED: POTA10TA38 PO (12:48)
--- NOTE | 2016-09-21 12:52 | PCM.DIMED ---
Discharge Instructions Date of Service Sep 21, 2016 Dates of Hospitalization Sep 18, 2016 at 17:21 Discharge Diagnosis Discharge Diagnosis NSTEMI, in the setting of in-stent stenosis, Medication Instructions Additional med instructions Take aspirin with close observation Take Lasix, water pill 20mg daily for 5days, Take Eplerenon 50mg daily Please note that Amlodipine was being held given newly started water pill. Diet Discharge Diet: Low fat, Low Sodium, Heart Healthy Activity Discharge Activity: No restrictions Call your provider Call your provider for: Shortness of breath, Chest pain Patient Instructions Patient Instructions You were hospitalized with chest pain, found to have heart attack. You underwent cardiac intervention well. Given your hx of bleeding, you were recommended to take aspirin every other day or every 3days. Please monitor your stools closely for bleeding. Please continue Anti-acid medication together. Please follow up with in 1week and in 2weeks Please note that given newly started medicine, we would like to repeat CMP on next Saturday 09/30 Follow-up Provider: Jann Sanchez MD Follow-up with PCP in: 2 weeks Provider: Bria Hedrick MD Follow-up in: 1 week Zahida Noble MD Sep 21, 2016 12:52
[2016-09-21] MEDS ORDERED: NITR0.4T SL (14:38)
--- NOTE | 2016-09-21 15:03 | PCM.DC.MED ---
Discharge Summary Date of Service Sep 21, 2016 Dates of Hospitalization Date of Hospital Admission Sep 18, 2016 at 17:21 Date of Discharge: Sep 21, 2016 Providers: Admitting Physician: Rip Lucero Primary Care Physician: Jann Sanchez MD Attending Physician: Zahida Soriano MD Diagnosis at Time of Discharge Diagnosis at Time of Discharge NSTEMI, in the setting of in-stent stenosis, Hypertension. Hyperlipidemia Diabetes mellitus type II, diet-controlled Hyperaldosteronism Consultations Cardiology Procedures XRay, CTs & MRIs From [facility]: Chest x-ray one view: No acute disease. Brief History HPI obtained by on 09/18 Nicho De La Rosa is a 66-year-old man with past history significant for coronary artery disease status post CABG and multiple stents, most recent in 2015, hypertension, hyperaldosteronism, hyperlipidemia, diabetes mellitus type II, sleep apnea who presented to the [facility] emergency department today due to back and left shoulder pain that started 2 days ago with mild chest pressure this morning. Patient states that his pain started on Thursday night and he attempted to take some ibuprofen which helped ameliorate his pain temporarily. Patient also attempted to take some nitroglycerin which did not improve his back and shoulder pain. Patient notes mild shortness of breath. He denies any orthopnea, paroxysmal nocturnal dyspnea, lower extremity edema, fever, chills, nausea, vomiting, palpitations. Patient also states these had history of GI bleed and so he wanted to avoid taking extra ibuprofen. At the [facility] emergency department his vital signs were stable. Pulse ox was 99% on room air , blood pressure was 129/63, temperature was 98.1 Fahrenheit, pulse 68, respiratory rate was 20. His laboratory evaluation revealed an unremarkable CMP with BUN of 15 and creatinine of 0.9 as well as an unremarkable CBC. Of note however the patient's troponin I was 13.6. He was given a full dose of aspirin and 12.[address] Hammer was contacted and recommended aspirin, beta pablo and statin. He recommended against heparin drip as the infarction completed. The patient is to have the patient undergo a cardiac stress test tomorrow if he remains chest pain-free. Hospital Course 66-year-old man with past history significant for coronary artery disease status post CABG and multiple stents, most recent in 2015, hypertension, hyperaldosteronism, hyperlipidemia, diabetes mellitus type II, sleep apnea who presented to the [facility] emergency department due to back and left shoulder pain that started 2 days earlier Brief hospital course Patient was admitted with back and left shoulder pain, found to have NSTEMI. Patient underwent cardiac catheter by , which showed in-stent restenosis in occluded circumflex artery, balloon angioplasty performed. Patient was started on aspirin on top of plavix issues taking at home. During the hospital course following cardiac catheterization, pt developed acute pulmonary edema, responded very well to Lasix 20 mg IV. Patient received 2 doses. On the day of d/c, respiratory status remained stable, pt was ambulating without dyspnea, SpO2 maintained on room air. Plan was to continue Lasix 20 mg daily for 5 days, repeat CMP to check potassium level in the clinic prior to see next week. Given significant GI bleeding history while he was on dual antiplatelet early this year with Peptic ulcer disease, aspirin was recommended to take every other day with very close monitoring of his stools. Patient also was recommended to continue take pantoprazole with chronic anti- platelet tx. # Acute fever on 09/19/16 likely due to acute community acquired pneumonia ( based on CXR). Present on admission. - Started Ceftriaxone + Azithro (Day 2) - Followup blood culture # Acute NSTEMI, present on admission, active - Appreciate Cardiology consult. I discussed with cardiology today. Input appreciated. Will followup with recs - Continue aspirin, carvedilol, Lipitor for now - Plan for cath today - Echocardiogram as noted above # Hypertension. Stable - Continue outpatient medications # Hyperlipidemia. Stable. - Continue statin as above # Diabetes mellitus type II, diet-controlled - Monitor blood glucose. - ISS # Hyperaldosteronism - Continue Eplerenone Dispo: 1-2 days pending cardiac workup Exam Vital Signs (Last) Date Time Temp Pulse Resp B/P Pulse Ox O2 Delivery O2 Flow Rate FiO2 09/21/16 12:44 72 09/21/16 11:27 36.6 21 111/64 94 Room Air 09/21/16 03:01 4.00 Exam NAD, comfortably laying down on the bed no JVD, MMM, no LAD RRR, nl s1, s2 no mrg CTAB, no w,c S,ND,NT,normoactive BS+ warm, no edema, pulses 2/2 Test 09/18/16 19:00 09/19/16 00:05 09/19/16 06:41 09/19/16 08:52 Hold Degroot Top Tube Received (Received) Total Creatine Kinase 387U/L (21-232) Creatine Kinase MB 29.5ng/mL (0.0-10.4) Creatine Kinase MB % 7.6% (0.0-5.0) Troponin T 1.37ug/L (0.0-0.011) Hemoglobin A1c 5.8% (4.8-5.6) Triglycerides Level 72mg/dL (0-149) Cholesterol Level 140mg/dL (100-199) LDL Cholesterol, Calculated 89.600mg/dL (0-99) VLDL Cholesterol 14.400mg/dL HDL Cholesterol 36mg/dL (>39) Cholesterol/HDL Ratio 3.89 (0.0-4.4) Urine Color Yellow (YELLOW) Urine Appearance Clear (CLEAR,HAZY) Urine pH 5.5 (5.0-8.0) Urine Specific [place] 1.025 (1.003-1.035) Urine Protein Negativemg/dL (NEG,TRACE) Urine Glucose (UA) Negativemg/dL (NEGATIVE) Urine Ketones 15mg/dL (NEGATIVE) Urine Occult Blood Trace (NEGATIVE) Urine Nitrite Negative (NEGATIVE) Urine Bilirubin Negative (NEGATIVE) Urine Urobilinogen Normalmg/dL (NORMAL) Urine Leukocyte Esterase Negative (NEGATIVE) Urine RBC 3-10/hpf (0-2) Urine WBC 0-5/hpf (0-5) Urine Epithelial Cells Occasional/hpf (NONE-MOD) Urine Crystals None seen (NONE SEEN) Urine Bacteria None/hpf (NONE-FEW) Urine Hyaline Casts None/lpf (NONE) Urine Granular Casts None seen (NONE SEEN) Urine Waxy Casts None seen (NONE SEEN) Urine Red Blood Cell Casts None seen (NONE SEEN) Urine White Blood Cell Casts None seen (NONE SEEN) Urine Mucus Present (None Seen) Urine Trichomonas None seen (NONE SEEN) Urine Yeast None (NONE SEEN) Urinalysis Comment None Urine Culture Reflexed Not indicated Test 09/20/16 04:20 09/21/16 03:20 White Blood Count 10.3th/mm3 (3.8-10.1) Red Blood Count 4.68mil/mm3 (4.40-5.80) Hemoglobin 11.8g/dL (13.8-17.2) Hematocrit 36.6% (41.0-50.0) Mean Corpuscular Volume 78.2fL (81-100) Mean Corpuscular Hemoglobin 25.2pg (27.0-35.0) Mean Corpuscular Hemoglobin Concent 32.2% (32.0-37.0) Red Cell Distribution Width 18.6% (12.3-15.4) Platelet Count 124bil/L (150-400) Neutrophils (%) (Auto) 65.5% (40-74) Lymphocytes (%) (Auto) 14.6% (14-46) Monocytes (%) (Auto) 18.6% (4-12) Eosinophils (%) (Auto) 0.8% (0-5) Basophils (%) (Auto) 0.3% (0-3) Prothrombin Time 11.2sec (8.1-12.5) Prothromb Time International Ratio 1.05ratio Activated Partial Thromboplast Time 31.8sec (22.8-33.0) Magnesium Level 1.8mg/dL (1.6-2.6) Procalcitonin 0.10ng/mL (0.00-0.08) Sodium Level 140mEq/L (134-144) Potassium Level 3.9mEq/L (3.5-5.2) Chloride Level 102mEq/L (97-108) Carbon Dioxide Level 24mmol/L (18-29) Blood Urea Nitrogen 14mg/dL (8-27) Creatinine 0.86mg/dL (0.76-1.27) Estimat Glomerular Filtration Rate 94mL/min (>59) Glucose Level 149mg/dL (60-99) Calcium Level 8.9mg/dL (8.5-10.1) Discharge Medications Discharge Medications Aspirin Chew (Aspirin Chew) 81 Mg Chew 81 MG PO Q2DAY Prescribed by: ZAHIDA SORIANO MD Atorvastatin (Lipitor) 20 Mg Tablet 20 MG PO DAILY (Reported) Carvedilol (Carvedilol) 25 Mg Tablet 25 MG PO BID (Reported) Clopidogrel Bisulfate (Plavix) 75 Mg Tablet 75 MG PO DAILY (Reported) Doxazosin (Cardura) 8 Mg Tablet 8 MG PO HS (Reported) Eplerenone (Eplerenone) 50 Mg Tablet 50 MG PO DAILY (Reported) Furosemide (Lasix) 20 Mg Tablet 20 MG PO DAILY Prescribed by: ZAHIDA SORIANO MD Losartan Potassium (Losartan Potassium) 100 Mg Tablet 100 MG PO DAILY (Reported ) Nitroglycerin 0.2 mg/hr Patch (Nitroglycerin 0.2 mg/hr Patch) 1 Each Patch 0.2 TOPICAL DAILY (Reported) Nitroglycerin SL (Nitrostat) 0.4 Mg Tab.subl 0.4 MG SL Q5MIN Prescribed by: ZAHIDA SORIANO MD Pantoprazole DR (Pantoprazole DR) 40 Mg Tablet.dr 40 MG PO BIDAC Prescribed by: ASHLEE PEDRO, DO Additional med instructions Take aspirin with close observation Take Lasix, water pill 20mg daily for 5days, Take Eplerenon 50mg daily Please note that Amlodipine was being held given newly started water pill. Followup Plan Disposition: Home Discharge Diet: Low fat, Low Sodium, Heart Healthy Discharge Activity: No restrictions Patient Instructions You were hospitalized with chest pain, found to have heart attack. You underwent cardiac intervention well. Given your hx of bleeding, you were recommended to take aspirin every other day or every 3days. Please monitor your stools closely for bleeding. Please continue Anti-acid medication together. Please follow up with in 1week and in 2weeks Please note that given newly started medicine, we would like to repeat CMP on next Saturday 09/30 Follow-up Provider: Jann Sanchez MD Follow-up with PCP in: 2 weeks Provider: Bria Hedrick MD Follow-up in: 1 week Time spent 65 minutes Zahida Soriano MD Sep 21, 2016 15:03
--- NOTE | 2016-09-21 16:21 | NUR ---
Social Work: Discharge/Multidisciplinary Rounds D: Pt discussed in am rounds. pt is medically stable for discharge home. Capacity for self-care and needs discussed. no concerns or needs identified by MD welfare case worker. SHEARER SCREEN MEASURER AND TRIMMER met with the patient at bedside to assess for unmet needs or barriers to d/c. No concerns about discharge home noted by the patient. Pt awaiting transportation from family. Pt has been ambulating I during admission and participates in own ADLs and self care. No sw needs identified. staffing manager to review discharge ppw, medications and followup appointments. A: Pt who is I at baseline. P: Pt to discharge home via POV and no sw needs. EMANUEL Leija
--- NOTE | 2016-09-21 17:29 | NUR ---
Discharge Pt left with son at 1730. All belongings taken with. IVx2 and tele removed. All changes in medications gone over and understood. Discharge follow ups need to be made and the pt understands to call Thursday. Right groin site soft and non tender, no bruising, and bandage was changed after the pt showered. All discharge instructions gone over and understood.
== END 2016-09-21 17:25 | disposition home or self-care (01) | DRG 251 ==
LOC: MPC 17:21 → OBSVTOIN 17:21 → PCC 09-20 17:30
PROVIDERS: ADMIT Internal Medicine; ATTEND Internal Medicine
PROC: 02703ZZ Dilation of Coronary Artery, One Artery, Percutaneous Approach (ICD-10-PCS; principal; 2016-09-20)
PROC: B240ZZ3 Ultrasonography of Single Coronary Artery, Intravascular (ICD-10-PCS; 2016-09-20)
PROC: B2131ZZ Fluoroscopy of Multiple Coronary Artery Bypass Grafts using Low Osmolar Contrast (ICD-10-PCS; 2016-09-20)
PROC: B2111ZZ Fluoroscopy of Multiple Coronary Arteries using Low Osmolar Contrast (ICD-10-PCS; 2016-09-20)
DX: I21.4 Non-ST elevation (NSTEMI) myocardial infarction (principal); T82.855A Stenosis of coronary artery stent, initial encounter; I25.10 Atherosclerotic heart disease of native coronary artery without angina pectoris; I10 Essential (primary) hypertension; Z95.1 Presence of aortocoronary bypass graft; Z95.5 Presence of coronary angioplasty implant and graft; Z87.891 Personal history of nicotine dependence; E26.9 Hyperaldosteronism, unspecified; E78.5 Hyperlipidemia, unspecified; E11.9 Type 2 diabetes mellitus without complications; Z79.82 Long term (current) use of aspirin; G62.9 Polyneuropathy, unspecified; Z79.02 Long term (current) use of antithrombotics/antiplatelets; Y71.1 Therapeutic (nonsurgical) and rehabilitative cardiovascular devices associated with adverse incidents; E87.70 Fluid overload, unspecified